=== PATIENT | female | born 1980 | race Caucasian/White ===

== ENCOUNTER 2018-04-25 16:35 | Inpatient (IN) ==
[2018-04-25] MEDS ORDERED: Oxytocin 30 Units/500ml Premix 30 UNITS/500 ML BAG IV.SIG ONE (17:13)
[2018-04-25] MEDS ORDERED: Sodium Chlor 0.9% Inj 500 ML IV.SIG PRN (17:13)
[2018-04-25] MEDS ORDERED: fentaNYL Citrate Inj 100 MCG/2 ML Ampul IV.PUSH PRN ×2 (17:13)
[2018-04-25] MEDS ORDERED: Sod Chloride 0.9% Inj 1,000 ML IV.CONT PRN (17:13)
[2018-04-25] MEDS ORDERED: Naloxone Inj 0.4 MG/ML Vial IV.PUSH PRN (17:13)
[2018-04-25] MEDS ORDERED: Citric Acid/Sodium Citrate Liq 30 ML UDC PO SCH (17:15)
--- NOTE | 2018-04-25 17:42 | P.HPOB ---
History of Present Illness Primary Care Physician: NOT REQU[facility] History of Present Illness: 38 y/o F, at 38wk4d comes in for LOF since waking up at 10:30AM this morning. She has had to change her underwear multiple times over the day. Fluid has been clear. Denies any CXNS. No VB. Slightly decreased FM over the day today , however she still feels the baby throughout the day. obhx this : No care from 13weeks-27weeks otherwise uncomplicated recent u/s findings of LGA baby, borderline polyhydramnios obhx: x 4 - last delivery in 2014 SAB x 1 TOP x 1 w/ D&C medhx: none surghx: none meds: PNV all: none - Inpatient Certification I certify that the inpatient services were ordered in accordance with Medicare regulations governing the order. This includes certification that hospital inpatient services are reasonable and necessary and in the case of services not specified as inpatient-only under 42 CFR 419.22(n), that they are appropriately provided as inpatient services in accordance to with the 2-midnight benchmark under 43 CFR 412.3(e) Estimated Total Length of Stay (Days): 2 Plans for Post Hospital Care: Home Review of Systems All other systems reviewed negative except as stated in HPI Medications and Allergies Active Medications: Active Medications Citric Acid/Sodium Citrate (Sodium Citrate/Citric Acid Liq) 30 ml PO MANAGER [facility] Stop: 04/29/18 17:14 Fentanyl Citrate (Fentanyl Inj) 50 mcg IV.PUSH Q1H PRN PRN Reason: Pain Scale 3 - 5 Fentanyl Citrate (Fentanyl Inj) 100 mcg IV.PUSH Q1H PRN PRN Reason: PAIN SCALE 6 TO 10 Lactated Ringer's (Lr 1000 Ml Inj) 1,000 mls @ 125 mls/hr IV.CONT .Q8H [facility] Lactated Ringer's (Lr 1000 Ml Inj) 1,000 mls @ 3,000 mls/hr IV.SIG UNSCH PRN PRN Reason: compromise or epidural Sodium Chloride (Ns Inj) 1,000 mls @ 100 mls/hr IV.CONT .Q10H PRN PRN Reason: SEE LABEL COMMENTS Oxytocin (Pitocin 30 Units/Ns 500 Ml Premix) 30 units in 500 mls @ 999 mls/hr IV.SIG BOLUS ONE Stop: 04/25/18 17:43 Sodium Chloride (Ns Inj) 500 mls @ 1,000 mls/hr IV.SIG UNSCH PRN PRN Reason: SEE LABEL COMMENTS Lidocaine HCl (Xylocaine 1% Inj) 0.1 ml I-DERMAL PRN PRN PRN Reason: For IV start Stop: 04/28/18 17:12 Lidocaine HCl (Xylocaine 1% Inj) 10 ml INFILTRATN PRN PRN PRN Reason: For episiotomy repair Stop: 04/27/18 17:12 Mineral Oil (Muri-Lube Oil) 10 ml TOPICAL PRN PRN PRN Reason: PRN perineal massage Naloxone HCl (Narcan Inj) 0.1 mg IV.PUSH Q2M PRN PRN Reason: for opiate reversal Ondansetron HCl (Zofran Inj) 4 mg IV.PUSH Q6H PRN PRN Reason: NAUSEA OR VOMITING Allergies Allergy/AdvReac Type Severity Reaction Status Date / Time No Known Allergies Allergy Verified 04/25/18 17:15 Exam Vital signs: Vital Signs 04/25/18 16:56 04/25/18 17:00 Temperature 98.2 F Pulse Rate 103 H Respiratory Rate 18 Blood Pressure 119/79 Intake & Output 04/24/18 04/25/18 04/25/18 18:59 06:59 18:59 Weight 92.079 kg Narrative: FH: 38 FHR: cat 1 tracing, no decels, reactive toco: no cxns Caprini VTE Risk Assessment Caprini VTE Risk Assessment: No/Low Risk (score <= 1) Caprini Risk Assessment Model: Point Value = 1 Point Value = 2 Point Value = 3 Point Value = 5 Age 41-60 Minor surgery BMI > 25 kg/m2 Swollen legs Varicose veins or History of unexplained or recurrent spontaneous Oral contraceptives or hormone replacement Sepsis (< 1 month) Serious lung disease, including pneumonia (< 1 month) Abnormal pulmonary function Acute myocardial infarction Congestive heart failure (< 1 month) History of inflammatory bowel disease Medical patient at bed rest Age 61-74 Arthroscopic surgery Major open surgery (> 45 min) Laparoscopic surgery (> 45 min) Malignancy Confined to bed (> 72 hours) Immobilizing plaster cast Central venous access Age >= 75 History of VTE Family history of VTE Factor V Leiden Prothrombin [id number] Lupus anticoagulant Anticardiolipin antibodies Elevated serum homocysteine Heparin-induced thrombocytopenia Other congenital or acquired thrombophilia Stroke (< 1 month) Elective arthroplasty Hip, pelvis, or leg fracture Acute spinal cord injury (< 1 month) Prophylaxis Regimen: Total Risk Factor Score Risk Level Prophylaxis Regimen 0-1 Low Early ambulation 2 Moderate Order ONE of the following: *Sequential Compression Device (SCD) *Heparin 5000 units SQ BID 3-4 Higher Order ONE of the following medications: *Heparin 5000 units SQ TID *Enoxaparin/Lovenox 40 mg SQ daily (WT < 150 kg, CrCl > 30 mL/min) *Enoxaparin/Lovenox 30 mg SQ daily (WT < 150 kg, CrCl > 10-29 mL/min) *Enoxaparin/Lovenox 30 mg SQ BID (WT < 150 kg, CrCl > 30 mL/min) AND/OR *Sequential Compression Device (SCD) 5 or more Highest Order ONE of the following medications: *Heparin 5000 units SQ TID (Preferred with Epidurals) *Enoxaparin/Lovenox 40 mg SQ daily (WT < 150 kg, CrCl > 30 mL/min) *Enoxaparin/Lovenox 30 mg SQ daily (WT < 150 kg, CrCl > 10-29 mL/min) *Enoxaparin/Lovenox 30 mg SQ BID (WT < 150 kg, CrCl > 30 mL/min) AND *Sequential Compression Device (SCD) Assessment and Plan - Diagnosis (1) 38 weeks gestation of Code(s): Z3A.38 - 38 weeks gestation of Status: Acute Plan: 38 y/o F, at 38wk4d comes in for LOF since waking up at 10:30AM this morning, + amniosure testing. - SROM at 10:30AM (at the latest) -GBS negative - admit to L&D for induction for premature ROM - plan for pit at 08-27-29 - OB hospitalist aware - PNL reviewed - Cat 1 tracing, cont to monitor
[2018-04-25] MEDS ORDERED: Oxytocin 30 Units/500ml Premix 30 UNITS/500 ML BAG IV.SIG PRN (18:00)
[2018-04-25 18:32] LABS: Baso % (Auto) 0.3 % (0.0-2.0); Eos % (Auto) 0.3 % (0.0-4.0); Hematocrit 35.1 % (35.0-46.0); Hemoglobin 12.8 gm/dL (11.6-15.3); Lymph # (Auto) 1.4 th/mm3 (1.0-4.8); Lymph % (Auto) 14.9 % (9.0-44.0); Mean Corpuscular Hemoglobin 33.3 pg (27.0-34.0); Mean Corpuscular Volume 91.2 fL (80.0-100.0); Mean Platelet Volume 9.2 fL (7.0-11.0); Mono # (Auto) 0.4 th/mm3 (0.0-0.9); Mono % (Auto) 4.8 % (0.0-8.0); Neut # (Auto) 7.3 th/mm3 (1.8-7.7); Neut % (Auto) 79.7 % (16.0-70.0); Platelet Count 215 th/mm3 (150-450); Red Blood Count 3.85 mil/mm3 (4.00-5.30); Red Cell Distribution Width 13.6 % (11.6-17.2); White Blood Count 9.2 th/mm3 (4.0-11.0)
[2018-04-25 18:35] LABS: Mean Corpuscular HGB Conc 36.5 % (32.0-36.0)
[2018-04-25 18:42] LABS: Bacteria,Urine Few /hpf; Bilirubin,Urine Negative (Negative); Calcium Oxalate Crystals,Urine Occasional /hpf; Clarity,Urine Hazy (Clear); Color,Urine Amber (Yellw/Straw); Glucose,Urine (UA) Negative (Negative); Hyaline Casts,Urine 1 /lpf (0-3); Leukocyte Esterase,Urine Small (Negative); Mucus,Urine Few /lpf (Occasional); Nitrite,Urine Negative (Negative); Specific Gravity,Urine 1.024 (1.002-1.035); Squamous Epithelial Cell,Urine 17 /hpf (0-5)
[2018-04-25 18:45] LABS: Amphetamine Urine With Conf Neg (Neg); Benzodiazepine Urine With Conf Neg (Neg)
[2018-04-25 19:06] LABS: Platelet Estimate Normal (Normal); Platelet Morphology Normal (Normal); RBC Morphology Normal (Normal)
[2018-04-25] MEDS ORDERED: Oxytocin 30 Units/500ml Premix 30 UNITS/500 ML BAG IV.CONT PRN (20:00)
--- NOTE | 2018-04-25 21:46 | P.OBLABOR ---
Subjective Interval history: Patient is a 38-year-old at 38 weeks and 4 days admitted to labor and delivery due to loss of fluid. Patient was seen at bedside patient is lying comfortably with no questions or concerns at this time. At approximately 2109 forebag was artificially ruptured. Objective Vital Signs: Vital Signs - 8 hr 04/25/18 16:56 04/25/18 17:00 04/25/18 19:25 Temperature 98.2 F 98.3 F Pulse Rate 103 H 92 H Respiratory Rate 18 18 Blood Pressure 119/79 121/71 Objective: Pelvic Exam: Cervix: Soft Dilatation: 3 Effacement: 80 Station: -2 Presentation: Vertex Membranes: Artificial rupture membranes at approximately 2109. Uterine Contractions: None FHT's: Category: 1 Baseline: 130s Reactive: Yes Variability: Moderate Decels: None Assessment and Plan - Diagnosis (1) 38 weeks gestation of Code(s): Z3A.38 - 38 weeks gestation of Status: Acute Plan: Patient is a 38-year-old at 38 weeks and 4 days admitted to labor and delivery due to loss of fluid. For bag was artificially ruptured at 2109. Patient currently on oxytocin. - AROM at 21:10 -Continue 2-2-30 oxytocin protocol - OB hospitalist aware - Cat 1 tracing, cont to monitor - Continue routine care
[2018-04-25] MEDS ORDERED: fentaNYL 2MCG-Bupiv 0.125% Epi 150 ML EPIDURAL ONE (22:53)
[2018-04-25] MEDS ORDERED: Lidocaine PF 1% Inj 10 ML Amp ONE (23:05)
[2018-04-25] MEDS ORDERED: Lidocaaine 1.5%/Epinephrine 1:200,000 PF Inj 5 ML Amp ONE (23:05)
[2018-04-25] MEDS ORDERED: fentaNYL 2MCG-Bupiv 0.125% Epi 150 ML EPIDURAL PRN (23:53)
[2018-04-25] MEDS ORDERED: fentaNYL Citrate Inj 100 MCG/2 ML Ampul EPIDURAL ONE (23:53)
[2018-04-26] MEDS ORDERED: Naloxone Inj 0.4 MG/ML Vial IV.PUSH PRN (06:09)
[2018-04-26] MEDS ORDERED: Bisacodyl 10 MG Supp RECTAL PRN (06:09)
[2018-04-26] MEDS ORDERED: Acetaminophen 325 MG Tablet PO PRN (06:09)
[2018-04-26] MEDS ORDERED: Benzocaine 20% Top Spray 60 ML Can TOPICAL PRN (06:09)
[2018-04-26] MEDS ORDERED: Witch Hazel 50%/Glyderin 12.5% 40 Pad Jar RECTAL PRN (06:09)
[2018-04-26] MEDS ORDERED: Zolpidem Tartrate 5 MG Tablet PO PRN (06:09)
[2018-04-26] MEDS ORDERED: Oxytocin 30 Units/500ml Premix 30 UNITS/500 ML BAG IV.CONT PRN (06:09)
--- NOTE | 2018-04-26 06:37 | P.OBDELI ---
Weeks Gestation: 38 Medical Induction of Labor: Yes Artificial Rupture of Membrane: Yes (forebag) Anesthesia: Epidural Episiotomy: none Vaginal Delivery: Normal Presentation: Occiput anterior Nuchal Cord: x1 Delayed Cord Clamping (45 sec): No Shoulder Dystocia: Suprapubic pressure given (#2), Bin maneuver done (#1) , Wood's screw maneuver done (#3- done after failed attempt to deliver posterior shoulder( left side ) .Successful rotation on anterior -right shoulder ) Placenta: Spontaneous delivery Laceration: None Estimated blood loss (mL): 50 : Male Additional Information: NICU team and respiratory present Apgars 6/6/8 Delivery taken over by Attending
[2018-04-26] MEDS: Senna/Docusate Sodium 8.6/50 MG Tablet PO SCH ×2 (09:57→21:42)
[2018-04-26] MEDS: Acetaminophen/Codeine 300/30 MG Tablet PO PRN ×3 (09:57→22:49)
[2018-04-26] MEDS ORDERED: Diphtheria/Tetanus/Pertussis Vaccine Inj 0.5 ML Syringe IM ONE (16:00)
[2018-04-26] MEDS ORDERED: Measles/Mumps/Rubella Vaccine Inj 0.5 ML Vial SQ ONE (16:00)
[2018-04-27] MEDS: Acetaminophen/Codeine 300/30 MG Tablet PO PRN ×4 (05:26→23:57)
--- NOTE | 2018-04-27 08:05 | P.PNOB ---
Subjective Post day: 1 Interval history: Patient is a 38-year-old delivered at 38 weeks and 4 days. Patient is day 1 after spontaneous vaginal delivery complicated by shoulder dystocia. Patient's pain is well-controlled. Patient reports eating and drinking without any nausea or vomiting. Patient reports minimal bleeding. Patient has passed gas. Patient is walking without lower extremity pain or shortness of breath. Patient reports desire for contraception but did not want to discuss this morning. Patient reports she is exhausted. Objective Vital Signs/I&O: Vital Signs 04/26/18 09:36 04/26/18 21:15 Temperature 98.0 F 98.2 F Pulse Rate 65 67 Respiratory Rate 20 18 Blood Pressure 131/70 120/66 Result Diagrams: 04/25/18 18:10 Objective Remarks: GENERAL: Well-nourished, well-developed patient. CARDIOVASCULAR: Regular rate and rhythm without murmurs, gallops, or rubs. RESPIRATORY: Breath sounds equal bilaterally. No accessory muscle use. ABDOMEN/GI: Abdomen soft, non-tender. Fundus: Firm, non-tender at umbilicus. GENITOURINARY: Light to moderate bleeding. EXTREMITIES: No cyanosis or edema, non-tender, without signs of DVT. Medications and IVs: Active Medications Acetaminophen (Tylenol) 650 mg PO Q4H PRN PRN Reason: PAIN SCALE 1 TO 2 Acetaminophen/Codeine Phosphate (Tylenol W/Cod #3) 1 tab PO Q6H PRN PRN Reason: PAIN 3-10 AND/OR FEVER >101F Last Admin: 04/27/18 05:26 Dose: 1 tab Al Hydroxide/Mg Hydroxide (Milk Of Magnesia Liq) 30 ml PO Q12H PRN PRN Reason: Mild Constipation Benzocaine (Americaine 20% [place]) 1 spray TOPICAL Q4H PRN PRN Reason: For Perineum Discomfort Last Admin: 04/26/18 09:57 Dose: 1 spray Bisacodyl (Dulcolax Supp) 10 mg RECTAL DAILY PRN PRN Reason: SEVERE CONSITIPATION Citric Acid/Sodium Citrate (Sodium Citrate/Citric Acid Liq) 30 ml PO GLASS CURVATURE GAUGER [facility] Stop: 04/29/18 17:14 Fentanyl Citrate (Fentanyl Inj) 50 mcg IV.PUSH Q1H PRN PRN Reason: Pain Scale 3 - 5 Fentanyl Citrate (Fentanyl Inj) 100 mcg IV.PUSH Q1H PRN PRN Reason: PAIN SCALE 6 TO 10 Last Admin: 04/25/18 22:25 Dose: 100 mcg Lactated Ringer's (Lr 1000 Ml Inj) 1,000 mls @ 125 mls/hr IV.CONT .Q8H [facility] Last Admin: 04/26/18 18:29 Dose: Not Given Lactated Ringer's (Lr 1000 Ml Inj) 1,000 mls @ 3,000 mls/hr IV.SIG UNSCH PRN PRN Reason: compromise or epidural Sodium Chloride (Ns Inj) 1,000 mls @ 100 mls/hr IV.CONT .Q10H PRN PRN Reason: SEE LABEL COMMENTS Sodium Chloride (Ns Inj) 500 mls @ 1,000 mls/hr IV.SIG UNSCH PRN PRN Reason: SEE LABEL COMMENTS Oxytocin (Pitocin 30 Units/Ns 500 Ml Premix) 30 units in 500 mls @ 2 mls/hr IV.SIG TITRATE PRN; Protocol PRN Reason: For induction of labor Oxytocin (Pitocin 30 Units/Ns 500 Ml Premix) 30 units in 500 mls @ 2 mls/hr IV.CONT TITRATE PRN; Protocol PRN Reason: For induction of labor Last Admin: 04/25/18 20:14 Dose: 2 milliunit/min, 2 mls/hr Fentanyl/Bupivacaine/Sodium Chlor (Fentanyl 2 Mcg-Bupiv 0.125% Epi) 150 mls @ 12 mls/hr EPIDURAL PRN PRN PRN Reason: for Labor Pain Last Admin: 04/25/18 23:56 Dose: 12 mls/hr Oxytocin (Pitocin 30 Units/Ns 500 Ml Premix) 30 units in 500 mls @ 100 mls/hr IV.CONT UNSCH PRN PRN Reason: Heavy bleeding Ibuprofen (Motrin) 800 mg PO Q8H PRN PRN Reason: For Cramping Last Admin: 04/27/18 00:45 Dose: 800 mg Lactulose (Lactulose Liq) 30 ml PO DAILY PRN PRN Reason: SEVERE CONSITIPATION Lidocaine HCl (Xylocaine 1% Inj) 0.1 ml I-DERMAL PRN PRN PRN Reason: For IV start Stop: 04/28/18 17:12 Lidocaine HCl (Xylocaine 1% Inj) 10 ml INFILTRATN PRN PRN PRN Reason: For episiotomy repair Stop: 04/27/18 17:12 Mineral Oil (Muri-Lube Oil) 10 ml TOPICAL PRN PRN PRN Reason: PRN perineal massage Naloxone HCl (Narcan Inj) 0.1 mg IV.PUSH Q2M PRN PRN Reason: for opiate reversal Naloxone HCl (Narcan Inj) 0.1 mg IV.PUSH Q2M PRN PRN Reason: for opiate reversal Ondansetron HCl (Zofran Inj) 4 mg IV.PUSH Q6H PRN PRN Reason: NAUSEA OR VOMITING Last Admin: 04/26/18 04:19 Dose: 4 mg Ondansetron HCl (Zofran Odt) 4 mg PO Q6H PRN PRN Reason: NAUSEA OR VOMITING Senna/Docusate Sodium (Jaimee-Colace) 1 tab PO BID [facility] Last Admin: 04/26/18 21:42 Dose: 1 tab Sennosides (Senokot) 17.2 mg PO Q12H PRN PRN Reason: Moderate Constipation Sodium Chloride (Ns Flush) 2 ml IV.FLUSH BID [facility] Last Admin: 04/26/18 21:42 Dose: 2 ml Sodium Chloride (Ns Flush) 2 ml IV.FLUSH PRN PRN PRN Reason: FLUSH AFTER USING IV ACCESS Witch Lia/Glycerin (Tucks Pads) 1 applicatio RECTAL QID PRN PRN Reason: HEMORRHOIDS Last Admin: 04/26/18 09:57 Dose: 1 applicatio Zolpidem Tartrate (Ambien) 5 mg PO HS PRN PRN Reason: SLEEP Assessment and Plan - Diagnosis (1) Normal course Code(s): Z39.2 - Encounter for routine follow-up Status: Acute - Plan Patient is a 38-year-old delivered at 38 weeks and 4 days. Patient is day 1 after spontaneous vaginal delivery complicated by shoulder dystocia. Patient was counseled to do 6 weeks of pelvic rest. Patient was counseled to follow up in 6 weeks. --AF VSS --Continue routine care --Motrin and Percocet when necessary for pain --Encourage OOB --Pelvic rest for 6 weeks will need follow-up appointment at that time. --Contraception: Patient still contemplating --Anticipate discharge this afternoon or tomorrow
[2018-04-27] MEDS: Senna/Docusate Sodium 8.6/50 MG Tablet PO SCH ×2 (09:41→22:28)
[2018-04-28] MEDS: Acetaminophen/Codeine 300/30 MG Tablet PO PRN (07:13)
--- NOTE | 2018-04-28 08:25 | P.PNOB ---
Subjective Post day: 2 Interval history: Patient is a 38-year-old delivered at 38 weeks and 4 days. Patient is day 2 after spontaneous vaginal delivery complicated by shoulder dystocia. Patient's pain is well-controlled. Patient reports eating and drinking without any nausea or vomiting. Patient reports minimal bleeding. Patient is walking without lower extremity pain or shortness of breath. Objective Vital Signs/I&O: Vital Signs 04/27/18 20:00 Temperature 98.1 F Pulse Rate 64 Respiratory Rate 17 Blood Pressure 139/75 Result Diagrams: 04/25/18 18:10 Objective Remarks: GENERAL: Well-nourished, well-developed patient. CARDIOVASCULAR: Regular rate and rhythm without murmurs, gallops, or rubs. RESPIRATORY: Breath sounds equal bilaterally. No accessory muscle use. ABDOMEN/GI: Abdomen soft, non-tender. Fundus: Firm, non-tender at umbilicus. GENITOURINARY: Light to moderate bleeding. EXTREMITIES: No cyanosis or edema, non-tender, without signs of DVT. Medications and IVs: Active Medications Acetaminophen (Tylenol) 650 mg PO Q4H PRN PRN Reason: PAIN SCALE 1 TO 2 Acetaminophen/Codeine Phosphate (Tylenol W/Cod #3) 1 tab PO Q6H PRN PRN Reason: PAIN 3-10 AND/OR FEVER >101F Last Admin: 04/28/18 07:13 Dose: 1 tab Al Hydroxide/Mg Hydroxide (Milk Of Magnesia Liq) 30 ml PO Q12H PRN PRN Reason: Mild Constipation Benzocaine (Americaine 20% Top [place]) 1 spray TOPICAL Q4H PRN PRN Reason: For Perineum Discomfort Last Admin: 04/26/18 09:57 Dose: 1 spray Bisacodyl (Dulcolax Supp) 10 mg RECTAL DAILY PRN PRN Reason: SEVERE CONSITIPATION Citric Acid/Sodium Citrate (Sodium Citrate/Citric Acid Liq) 30 ml PO MANUFACTURING ENGINEERING TECHNOLOGIST [facility] Stop: 04/29/18 17:14 Fentanyl Citrate (Fentanyl Inj) 50 mcg IV.PUSH Q1H PRN PRN Reason: Pain Scale 3 - 5 Fentanyl Citrate (Fentanyl Inj) 100 mcg IV.PUSH Q1H PRN PRN Reason: PAIN SCALE 6 TO 10 Last Admin: 04/25/18 22:25 Dose: 100 mcg Lactated Ringer's (Lr 1000 Ml Inj) 1,000 mls @ 125 mls/hr IV.CONT .Q8H [facility] Last Admin: 04/26/18 18:29 Dose: Not Given Lactated Ringer's (Lr 1000 Ml Inj) 1,000 mls @ 3,000 mls/hr IV.SIG UNSCH PRN PRN Reason: compromise or epidural Sodium Chloride (Ns Inj) 1,000 mls @ 100 mls/hr IV.CONT .Q10H PRN PRN Reason: SEE LABEL COMMENTS Sodium Chloride (Ns Inj) 500 mls @ 1,000 mls/hr IV.SIG UNSCH PRN PRN Reason: SEE LABEL COMMENTS Oxytocin (Pitocin 30 Units/Ns 500 Ml Premix) 30 units in 500 mls @ 2 mls/hr IV.SIG TITRATE PRN; Protocol PRN Reason: For induction of labor Oxytocin (Pitocin 30 Units/Ns 500 Ml Premix) 30 units in 500 mls @ 2 mls/hr IV.CONT TITRATE PRN; Protocol PRN Reason: For induction of labor Last Admin: 04/25/18 20:14 Dose: 2 milliunit/min, 2 mls/hr Fentanyl/Bupivacaine/Sodium Chlor (Fentanyl 2 Mcg-Bupiv 0.125% Epi) 150 mls @ 12 mls/hr EPIDURAL PRN PRN PRN Reason: for Labor Pain Last Admin: 04/25/18 23:56 Dose: 12 mls/hr Oxytocin (Pitocin 30 Units/Ns 500 Ml Premix) 30 units in 500 mls @ 100 mls/hr IV.CONT UNSCH PRN PRN Reason: Heavy bleeding Ibuprofen (Motrin) 800 mg PO Q8H PRN PRN Reason: For Cramping Last Admin: 04/28/18 07:13 Dose: 800 mg Lactulose (Lactulose Liq) 30 ml PO DAILY PRN PRN Reason: SEVERE CONSITIPATION Lidocaine HCl (Xylocaine 1% Inj) 0.1 ml I-DERMAL PRN PRN PRN Reason: For IV start Stop: 04/28/18 17:12 Mineral Oil (Muri-Lube Oil) 10 ml TOPICAL PRN PRN PRN Reason: PRN perineal massage Naloxone HCl (Narcan Inj) 0.1 mg IV.PUSH Q2M PRN PRN Reason: for opiate reversal Naloxone HCl (Narcan Inj) 0.1 mg IV.PUSH Q2M PRN PRN Reason: for opiate reversal Ondansetron HCl (Zofran Inj) 4 mg IV.PUSH Q6H PRN PRN Reason: NAUSEA OR VOMITING Last Admin: 04/26/18 04:19 Dose: 4 mg Ondansetron HCl (Zofran Odt) 4 mg PO Q6H PRN PRN Reason: NAUSEA OR VOMITING Senna/Docusate Sodium (Jaimee-Colace) 1 tab PO BID [facility] Last Admin: 04/27/18 22:28 Dose: 1 tab Sennosides (Senokot) 17.2 mg PO Q12H PRN PRN Reason: Moderate Constipation Sodium Chloride (Ns Flush) 2 ml IV.FLUSH BID [facility] Last Admin: 04/27/18 22:30 Dose: Not Given Sodium Chloride (Ns Flush) 2 ml IV.FLUSH PRN PRN PRN Reason: FLUSH AFTER USING IV ACCESS Witch Lia/Glycerin (Tucks Pads) 1 applicatio RECTAL QID PRN PRN Reason: HEMORRHOIDS Last Admin: 04/26/18 09:57 Dose: 1 applicatio Zolpidem Tartrate (Ambien) 5 mg PO HS PRN PRN Reason: SLEEP Assessment and Plan - Diagnosis (1) Normal course Code(s): Z39.2 - Encounter for routine follow-up Status: Acute - Plan Patient is a 38-year-old delivered at 38 weeks and 4 days. Patient is day 2 after spontaneous vaginal delivery complicated by shoulder dystocia. Patient was counseled to do 6 weeks of pelvic rest. Patient was counseled to follow up in 6 weeks. --AF VSS --Continue routine care --Ibuprofen when necessary for pain --Encourage OOB --Pelvic rest for 6 weeks will need follow-up appointment at that time. --Contraception: Patient still contemplating --Anticipate discharge today
[2018-04-28] MEDS: Senna/Docusate Sodium 8.6/50 MG Tablet PO SCH (10:29)
[2018-05-03 03:01] VITALS: BP 125/76; PULSE 52
[2018-05-03 03:04] VITALS: RESP 16
[2018-05-03 03:05] VITALS: TEMP 97.8
== END 2018-04-28 17:58 | disposition home or self-care (01) ==
LOC: HOBED 16:35 → H2E 17:23 → H1EA 04-26 09:04
PROVIDERS: ADMIT Obstetrics & Gynecology; ATTEND Obstetrics & Gynecology

== ENCOUNTER 2018-05-02 18:48 | Inpatient (IN) ==
--- NOTE | 2018-05-02 19:44 | ED ---
HPI General Chief complaint: Chest Pain Stated complaint: SOB after Delivery Time Seen by Provider: 05/02/18 19:16 Source: patient Mode of arrival: ambulatory Limitations: no limitations History of Present Illness HPI narrative: The patient is a 38 year old female 6 days status post vaginal delivery who presents to the [facility] emergency department with a history of shortness of breath that began last night. The patient reports that she had several episodes of awakening from sound sleep gasping for air. She reports that throughout the day today she is also felt like she cannot get a deep breath. She denies having any cough, nasal congestion, or nasal discharge, however she has had a headache. She reports that it started on the left side of her head and now feels more like a tension headache. She reports that she thought it may be related to sinus congestion, therefore on Wednesday she started a decongestant. She does not know the name of it. The patient also reports taking ibuprofen as needed since the delivery. She reports that her lochia is decreasing. She denies having any increasing lower extremity edema, calf pain, or erythema. She reports that she has felt exhausted since the delivery and has been mainly resting in bed over the last few days. She reports that she is bottlefeeding. She denies having any known fevers. On review of systems otherwise, the patient denies having any neck pain or stiffness, abdominal pain, vomiting, diarrhea, urinary symptoms, or neurologic symptoms. The patient reports that when she tries to take a deep breath she has intermittent sharp pain along bilateral sides of the chest. Related Data Previous Rx's Medication Instructions Recorded ibuprofen 800 mg PO Q8H PRN #30 tab 04/27/18 Allergies Allergy/AdvReac Type Severity Reaction Status Date / Time No Known Allergies Allergy Verified 04/25/18 17:15 Review of Systems ROS: all other systems reviewed are negative [facility] Medical History Medical History Patient denies medical problems (Acute) Surgical History Surgical History Hx of tonsillectomy (Acute) Family History Family History Grandparent Stroke Social History Social History Substance History: No History of Abuse Second Hand Smoke Exposure: No Smoking Status: Former smoker Tobacco Type: Cigarettes Cigarettes Per Day: 7 Years Smoked: 2 Pack-Years: 0.70 How Often Do You Have a Drink Containing Alcohol: Never Recent Travel in [facility] within the Last 8 Weeks: No Recent Out of Country Travel within the Last 8 Weeks: No Immunization History Tetanus Immunization: >5 Years Exam Const General: cooperative, no acute distress and well developed Nutritional Appearance: well nourished Orientation: alert, awake and oriented x3 [facility] Head: normocephalic and atraumatic Nose: no nasal discharge and no epistaxis Face and sinus: no sinus tenderness Mouth: moist mucous membranes Throat: posterior oropharynx normal and uvula midline Eyes Sclera: normal sclerae Pupils: PERRL EOM: EOM intact bilaterally Neck Neck: trachea midline and no JVD Resp Effort & Inspection: no use of accessory muscles Auscultation: clear to auscultation bilaterally Cardio Rate: bradycardic (Sinus bradycardia in the 40s, no pulse deficits to the extremities on simultaneous auscultation and palpation of her radial artery) Rhythm: regular rhythm Heart Sounds: no gallops, no murmurs and no rubs GI Inspection: non-distended and other (Fundus is firm and below the umbilicus.) Palpation: soft, no hepatosplenomegaly and nontender Auscultation: normal bowel sounds Back/Spine/Pelvis Back: no CVA tenderness Skin General: dry skin (warm) Neuro General: alert, awake, oriented x3 and other (Grossly nonfocal.) Speech: speech normal Motor: no movement abnormalities noted Extrem General: normal to inspection (2+ pulses in all 4 extremities. Negative Homans sign. No palpable cords.), calf tenderness, no clubbing, no cyanosis and edema (Trace pedal edema bilaterally.) Laterality: bilaterally Psych Mood: congruent mood Affect: normal affect Judgment: judgment good Course Reevaluation(s) Reevaluation #1: The patient on reevaluation is resting reports feeling improved well resting. Blood pressure is slowly improving. Initial Documented Vital Signs Temperature 98.5 F 05/02/18 19:08 Pulse Rate 47 L 05/02/18 19:08 Respiratory Rate 18 05/02/18 19:08 Blood Pressure 164/94 H 05/02/18 19:08 Pulse Oximetry 98 05/02/18 19:08 Last Documented Vital Signs Temperature 98.4 F 05/03/18 17:00 Pulse Rate 76 05/03/18 17:55 Respiratory Rate 18 05/03/18 18:00 Blood Pressure 124/74 05/03/18 18:00 Pulse Oximetry 96 05/03/18 00:07 Critical Care Time Critical Care Time: Yes Total Critical Care Time: 41 Attestation: Aggregate critical care time was 41 minutes. Time to perform other separately billable procedures was not included in the critical care time. My time did not include minutes spent treating any other patients simultaneously or on activities that did not directly contribute to the patient's treatment. The services I provided to this patient were to treat and/or prevent clinically significant deterioration that could result in: Respiratory failure, versus seizure activity, cardiovascular collapse I provided critical care services requiring my management, as noted below: Chart data review, documentation time, medication orders and management, vital sign assessments/reviewing monitor data, ordering and reviewing lab tests, ordering and interpreting/reviewing x-rays and diagnostic studies, care of the patient and discussion of the patient with the admitting physicians. Medical Decision Making MDM Narrative Medical decision making narrative: During the course of the patient's emergency department visit, the patient's history, examination, and differential diagnosis were reviewed with the patient. The patient was placed on a specialty person with oximetry and frequent blood pressure monitoring. The patient had IV access obtained and blood work sent for analysis. A diagnostic evaluation was started regarding the patient's shortness of breath, hypertension, bradycardia. A call was placed out to the OB ED hospitalist at 7:29 PM regarding this patient's case. I spoke to Dr. Ceja. She recommended that the workup be started in the emergency department and that I call her with additional information after the results are obtained. The patient initially had an EKG that shows a sinus cardia heart rate of 46, QRS duration is 86 ms, QTC 376 ms. The patient's initial blood pressure was 173/84, however the patient's blood pressure quickly went down to the 150 systolic. This will be monitored closely. The patient's blood pressure again went up. The patient was given hydralazine 5 mg IV. The patient's diagnostic studies are remarkable for a white count of 5.4, hemoglobin 12.3, platelets are normal at 232 with a normal differential, PT PTT within normal limits, d-dimer is elevated at 3.71, CTA to rule out PE was ordered. Chemistry is remarkable for chloride of 109, ALT is elevated at 59, however AST is normal at 33, alk phos 161, initial set of cardiac enzymes are within normal limits, BNP is 268, albumin 2.7, magnesium is 1.9. Urinalysis shows large occult blood trace leukocyte esterase 33 RBCs 9 WBCs few mucus, culture indicated, however I suspect this is contaminant from vaginal bleeding from recent delivery. No protein is noted in the urine. A CTA to rule out PE shows no evidence of pulmonary embolism, 5 mm right lung nodule and multiple enlarged middle mediastinal and bilateral hilar nodes are nonspecific, mid mid malignancy needs to be ruled out according to the reading radiologist. A call was again placed out to the OB ED hospitalist. She did agree to admit the patient for further evaluation and treatment to labor and delivery. The patient's blood pressure continued to be elevated and I discussed with her an additional administration of hydralazine. She was agreeable to another 5 mg IV being administered. The patient's blood pressure improved. The patient was transferred to L&D. The patient's results were discussed with the patient, including the plan of care. I explained that further testing and/ or monitoring is indicated based on the patient's history, examination, and/ or laboratory findings. Therefore, I recommended admission for additional evaluation. The patient expressed understanding and was agreeable with this plan. The patient was admitted to the hospital in guarded condition and sent to a bed under the care of the OB ED hospitalist. The patient's results were discussed with the patient, including the plan of care. I explained that further testing and/ or monitoring is indicated based on the patient's history, examination, and/ or laboratory findings. Therefore, I recommended admission for additional evaluation. The patient expressed understanding and was agreeable with this plan. The patient was admitted to the hospital in [-] condition and sent to a bed under the care of [-]. Medical Screen Exam Complete: Yes Emergency Medical Condition: Yes Differential Diagnosis Differential Diagnosis: Pneumonia, versus pulmonary embolism, versus cardiomyopathy, versus symptomatic bradycardia, versus acute coronary syndrome Medical Records Medical records reviewed: Yes I reviewed the patient's medical records. Lab Data Result diagrams: 05/02/18 19:40 05/02/18 19:40 Lab Results 05/02/18 05/02/18 05/02/18 Range/Units 19:40 19:40 19:40 WBC 5.4 (4.0-11.0) th/mm3 RBC 3.80 L (4.00-5.30) mil/mm3 Hgb 12.3 (11.6-15.3) gm/dL Hct 35.0 (35.0-46.0) % MCV 92.2 (80.0-100.0) fL MCH 32.5 (27.0-34.0) pg MCHC 35.3 (32.0-36.0) % RDW 12.8 (11.6-17.2) % Plt Count 232 (150-450) th/mm3 MPV 9.3 (7.0-11.0) fL Neut % (Auto) 65.5 (16.0-70.0) % Lymph % (Auto) 26.3 (9.0-44.0) % [place] % (Auto) 6.5 (0.0-8.0) % Eos % (Auto) 1.2 (0.0-4.0) % Baso % (Auto) 0.5 (0.0-2.0) % Neut # (Auto) 3.5 (1.8-7.7) th/mm3 Lymph # (Auto) 1.4 (1.0-4.8) th/mm3 [place] # (Auto) 0.4 (0.0-0.9) th/mm3 Eos # (Auto) 0.1 (0.0-0.4) th/mm3 Baso # (Auto) 0.0 (0.0-0.2) th/mm3 WBC Differential . Differential Comment Auto diff final PT 9.9 (9.8-11.6) sec INR 1.0 Ratio APTT 27.3 (24.3-30.1) sec D-Dimer Quant (PE/DVT) 3.71 H (0.00-0.50) mg/L FEU Sodium 141 (136-145) meq/L Potassium 4.1 (3.5-5.1) meq/L Chloride 109 H (98-107) meq/L Carbon Dioxide 22.8 (21.0-32.0) meq/L Anion Gap 9 (5-15) meq/L BUN 17 (7-18) mg/dL Creatinine 0.62 (0.50-1.00) mg/dL Estimated GFR Greater than 89 (>89) mL/min Random Glucose 83 (74-106) mg/dL Calcium 8.5 (8.5-10.1) mg/dL Magnesium (1.5-2.5) mg/dL Total Bilirubin 0.5 (0.2-1.0) mg/dL AST 33 (15-37) U/L ALT 59 H (10-53) U/L Alkaline Phosphatase 161 H (45-117) U/L Total Creatine Kinase 86 (26-192) U/L Troponin I Less than 0.02 L (0.02-0.05) ng/mL B-Natriuretic Peptide (0-100) pg/mL Total Protein 6.8 (6.4-8.2) g/dL Albumin 2.7 L (3.4-5.0) g/dL Urine Color (Yellw/Straw) Urine Clarity (Clear) Urine pH (5.0-8.5) Ur Specific [place] (1.002-1.035) Urine Protein (Neg-Trace) mg/dL Urine Glucose (UA) (Negative) mg/dL Urine Ketones (Negative) mg/dL Urine Occult Blood (Negative) Urine Nitrate (Negative) Urine Bilirubin (Negative) Urine Urobilinogen (Less than 2) mg/dL Ur Leukocyte Esterase (Negative) Urine RBC (0-3) /hpf Urine WBC (0-5) /hpf Ur Squamous Epith Cells (0-5) /hpf Urine Mucus (Occasional) /lpf Micro UA Comment Ur Microscopic Review Urine Culture Comments 05/02/18 05/02/18 05/02/18 Range/Units 19:40 19:40 21:30 WBC (4.0-11.0) th/mm3 RBC (4.00-5.30) mil/mm3 Hgb (11.6-15.3) gm/dL Hct (35.0-46.0) % MCV (80.0-100.0) fL MCH (27.0-34.0) pg MCHC (32.0-36.0) % RDW (11.6-17.2) % Plt Count (150-450) th/mm3 MPV (7.0-11.0) fL Neut % (Auto) (16.0-70.0) % Lymph % (Auto) (9.0-44.0) % [place] % (Auto) (0.0-8.0) % Eos % (Auto) (0.0-4.0) % Baso % (Auto) (0.0-2.0) % Neut # (Auto) (1.8-7.7) th/mm3 Lymph # (Auto) (1.0-4.8) th/mm3 [place] # (Auto) (0.0-0.9) th/mm3 Eos # (Auto) (0.0-0.4) th/mm3 Baso # (Auto) (0.0-0.2) th/mm3 WBC Differential Differential Comment PT (9.8-11.6) sec INR Ratio APTT (24.3-30.1) sec D-Dimer Quant (PE/DVT) (0.00-0.50) mg/L FEU Sodium (136-145) meq/L Potassium (3.5-5.1) meq/L Chloride (98-107) meq/L Carbon Dioxide (21.0-32.0) meq/L Anion Gap (5-15) meq/L BUN (7-18) mg/dL Creatinine (0.50-1.00) mg/dL Estimated GFR (>89) mL/min Random Glucose (74-106) mg/dL Calcium (8.5-10.1) mg/dL Magnesium 1.9 (1.5-2.5) mg/dL Total Bilirubin (0.2-1.0) mg/dL AST (15-37) U/L ALT (10-53) U/L Alkaline Phosphatase (45-117) U/L Total Creatine Kinase (26-192) U/L Troponin I (0.02-0.05) ng/mL B-Natriuretic Peptide 268 H (0-100) pg/mL Total Protein (6.4-8.2) g/dL Albumin (3.4-5.0) g/dL Urine Color Yellow (Yellw/Straw) Urine Clarity Clear (Clear) Urine pH 5.0 (5.0-8.5) Ur Specific [place] 1.023 (1.002-1.035) Urine Protein Negative (Neg-Trace) mg/dL Urine Glucose (UA) Negative (Negative) mg/dL Urine Ketones Negative (Negative) mg/dL Urine Occult Blood Large H (Negative) Urine Nitrate Negative (Negative) Urine Bilirubin Negative (Negative) Urine Urobilinogen Less than 2 (Less than 2) mg/dL Ur Leukocyte Esterase Trace H (Negative) Urine RBC 33 H (0-3) /hpf Urine WBC 9 H (0-5) /hpf Ur Squamous Epith Cells 1 (0-5) /hpf Urine Mucus Few H (Occasional) /lpf Micro UA Comment Culture indicated Ur Microscopic Review Not Reportable Urine Culture Comments Culture indicated Imaging Data Radiologist's impression: Chest X-Ray 05/02/18 19:33 CONCLUSION: The lungs are clear. Chest CTA 05/02/18 21:02 CONCLUSION: 1. The study is negative for pulmonary embolism. 2. 5 mm right lung nodule and multiple enlarged middle mediastinal and bilateral hilar nodes are nonspecific; malignancy needs to be ruled out. ECG Data Attestation: I personally reviewed and interpreted this ECG as follows: Interpretation: The patient had an EKG done on arrival. The patient's EKG reveals a sinus bradycardia heart rate of 46, QRS duration is 86 ms, QTC [address] segment elevation, T waves are inverted in V1. Discharge Plan Discharge Disposition Patient Disposition: 30 Still Patient Discharge Details Diagnosis: Shortness of breath, Hypertension, Lymphadenopathy, mediastinal Physicians Team ED Provider: Jacqueline Jose Primary Care Provider: UNKNOWN, Attending Provider: Keturah Ceja Other Providers: Nyla Hawkins ; [facility],Insurance ; Florencio Matias Discharge Interventions Interventions: ED Discharge Assessment Last Done: 05/03/18 02:56 Vital Signs Last Done: 05/02/18 19:21 Status ED Status: Left Department Discharge Information Discharge Date/Time: 05/03/18 02:57
--- NOTE | 2018-05-02 19:51 | XR ---
EXAM DATE: 05/02/2018 7:33 PM EDT AGE/SEX: 38 years / Female INDICATIONS: Chest discomfort with shortness of breath post recent delivery. CLINICAL DATA: This is the patient's initial encounter. Patient reports that signs and symptoms have been present for 1 week and indicates a pain score of 2/10. MEDICAL/SURGICAL HISTORY: None. None. COMPARISON: No prior exams available for comparison. FINDINGS: A single AP view of the chest demonstrates the lungs to be symmetrically aerated without evidence of mass, infiltrate or effusion. The cardiomediastinal contours are unremarkable. Osseous structures a re intact. CONCLUSION: The lungs are clear. Electronically signed by: Marlon Ferguson MD 05/02/2018 7:49 PM EDT
[2018-05-02 20:02] LABS: Baso % (Auto) 0.5 % (0.0-2.0); Eos # (Auto) 0.1 th/mm3 (0.0-0.4); Eos % (Auto) 1.2 % (0.0-4.0); Hemoglobin 12.3 gm/dL (11.6-15.3); Lymph # (Auto) 1.4 th/mm3 (1.0-4.8); Lymph % (Auto) 26.3 % (9.0-44.0); Mean Corpuscular HGB Conc 35.3 % (32.0-36.0); Mean Corpuscular Hemoglobin 32.5 pg (27.0-34.0); Mean Corpuscular Volume 92.2 fL (80.0-100.0); Mean Platelet Volume 9.3 fL (7.0-11.0); Mono # (Auto) 0.4 th/mm3 (0.0-0.9); Mono % (Auto) 6.5 % (0.0-8.0); Neut # (Auto) 3.5 th/mm3 (1.8-7.7); Neut % (Auto) 65.5 % (16.0-70.0); Platelet Count 232 th/mm3 (150-450); Red Cell Distribution Width 12.8 % (11.6-17.2); White Blood Count 5.4 th/mm3 (4.0-11.0)
[2018-05-02 20:19] LABS: Albumin 2.7 g/dL (3.4-5.0); Anion Gap 9 meq/L (5-15); Aspartate Aminotransferase 33 U/L (15-37); Blood Urea Nitrogen 17 mg/dL (7-18); Calcium 8.5 mg/dL (8.5-10.1); Carbon Dioxide 22.8 meq/L (21.0-32.0); Chloride 109 meq/L (98-107); Glomerular Filtration Rate Greater Than 89 mL/min (>89); Glucose,Random 83 mg/dL (74-106); Potassium 4.1 meq/L (3.5-5.1); Sodium 141 meq/L (136-145)
[2018-05-02 20:24] LABS: Alanine Aminotransferase 59 U/L (10-53); Alkaline Phosphatase 161 U/L (45-117); Creatine Kinase 86 U/L (26-192); Total Protein 6.8 g/dL (6.4-8.2)
[2018-05-02 20:52] LABS: Activated Partial Thrombo Time 27.3 sec (24.3-30.1); D-Dimer 3.71 mg/L FEU (0.00-0.50); Prothrombin Time 9.9 sec (9.8-11.6)
[2018-05-02 21:55] LABS: Bilirubin,Urine Negative (Negative); Clarity,Urine Clear (Clear); Color,Urine Yellow (Yellw/Straw); Glucose,Urine (UA) Negative (Negative); Leukocyte Esterase,Urine Trace (Negative); Mucus,Urine Few /lpf (Occasional); Nitrite,Urine Negative (Negative); Specific Gravity,Urine 1.023 (1.002-1.035); Squamous Epithelial Cell,Urine 1 /hpf (0-5)
[2018-05-02] MEDS ORDERED: hydrALAZINE HCl Inj 20 MG/ML Vial IV.PUSH ONE ×2 (22:06→23:24)
--- NOTE | 2018-05-02 23:10 | CT ---
EXAM DATE: 05/02/2018 9:33 PM EDT AGE/SEX: 38 years / Female INDICATIONS: Shortness of breath. Patient is six days . CLINICAL DATA: This is the patient's initial encounter. Patient reports that signs and symptoms have been present for 3 days and indicates a pain score of 0/10. MEDICAL/SURGICAL HISTORY: None. None. RADIATION DOSE: 18.05 CTDI (mGy) COMPARISON: No prior exams available for comparison. TECHNIQUE: Volumetric scanning was performed using a multi-row detector CT scanner during bolus infu amy of 85 ml Omnipaque 350 (iohexol) nonionic water-soluble contrast as a single exam dose. The j carlos a was post processed with a variety of visualization algorithms including full volume maximum intensi ty projection and sliding thin slab reformation. Using automated exposure control and adjustment of t he mA and/or kV according to patient size, radiation dose was kept as low as reasonably achievable to obtain optimal diagnostic quality images. DICOM format image data is available electronically for r eview and comparison. FINDINGS: Pulmonary Arteries: No filling defects are seen in the pulmonary arteries out to the subsegmental ve ssels. The left and right pulmonary arteries are normal in diameter. Lun mm noncalcified nodule in the anterior right midlung, best seen on the axial image #47. Effusion: None. Mediastinum: Abnormal. Enlarged middle mediastinal nodes including 1.5 cm azygos node, 2.2 cm subcar inal node and bilateral hilar adenopathy measuring up to 2.5 cm. Other: The axilla is unremarkable. CONCLUSION: 1. The study is negative for pulmonary embolism. 2. 5 mm right lung nodule and multiple enlarged middle mediastinal and bilateral hilar nodes are non specific; malignancy needs to be ruled out. Electronically signed by: Marlon Ferguson MD 05/02/2018 11:08 PM EDT
[2018-05-03 00:07] VITALS: O2SAT 96
[2018-05-03] MEDS ORDERED: Acetaminophen 325 MG Tablet PO PRN (03:32)
[2018-05-03] MEDS ORDERED: Mag Sulf/Water 4 gm/100 ml 100 ML IV.SIG ONE (03:32)
--- NOTE | 2018-05-03 03:46 | P.HPOB ---
History of Present Illness Primary Care Physician: UNKNOWN Chief Complaint: Shortness of breath History of Present Illness: 38-year-old status post normal spontaneous vaginal delivery complicated by shoulder dystocia baby is well. Patient presented to the emergency department complaining of acute shortness of breath. States with attempt to sit up notes very short of breath. Extensive workup in the ED. Received hydralazine x2 with improvement of BPs. AST is elevated. Now complains of severe headache. Spiral CT negative for pulmonary embolus however her hilar adenopathy is noted with a lung nodule. Cardiac enzymes are unremarkable. Chest x-ray negative EKG unremarkable however patient noted to have bradycardia for which she is asymptomatic - Inpatient Certification I certify that the inpatient services were ordered in accordance with Medicare regulations governing the order. This includes certification that hospital inpatient services are reasonable and necessary and in the case of services not specified as inpatient-only under 42 CFR 419.22(n), that they are appropriately provided as inpatient services in accordance to with the 2-midnight benchmark under 43 CFR 412.3(e) Estimated Total Length of Stay (Days): 3 Plans for Post Hospital Care: Home Review of Systems Constitutional: Reports headache(s), Denies anorexia, Denies body ache(s), Denies fatigue, Denies night sweats Eyes: Denies blind spots, Denies blurry vision, Denies change in vision, Denies floaters Ears, Nose, Mouth, and Throat: Denies abnormal hearing Cardiovascular: Denies chest pain Respiratory: Reports shortness of breath, Denies cough, Denies pain on inspiration Gastrointestinal: Denies abdominal pain Musculoskeletal: Denies abnormal walking, Denies joint pain, Denies joint swelling Skin/Breast: Denies bleeding lesions Neurologic: Reports headache(s), Denies abnormal hearing, Denies abnormal speech , Denies fainting, Denies loss of vision, Denies memory loss, Denies tingling, Denies tingling/numbness/burning sensations, Denies weakness Psychiatric: Reports abnormal sleep pattern, Denies seeing things others do not see, Denies sensing things others do not sense, Denies thoughts of hurting/ killing yourself Endocrine: Denies cold intolerance Allergic/Immunologic: Reports seasonal runny nose, Denies GI upset with certain foods PMFSH - History History Provided By: Patient - Medical History Medical History: Medical History (Last Reviewed 05/02/18 @ 19:39 by Jacqueline Jose MD) Patient denies medical problems - Surgical History Surgical History: Surgical History (Last Reviewed 05/02/18 @ 19:39 by Jacqueline Jose MD) Hx of tonsillectomy - Tobacco History Smoking Status: Former smoker Tobacco Type: Cigarettes - Alcohol History How Often Do You Have a Drink Containing Alcohol: Never - Substance Use History Substance History: No History of Abuse - Travel History Recent Travel in the [place] Within the Last 8 Weeks: No Recent Travel Out of the Country Within the Last 8 Weeks: No - Immunization History Tetanus Immunization: >5 Years Medications and Allergies Active Medications: Active Medications Sodium Chloride (Ns Flush) 2 ml IV.FLUSH UNSCH PRN PRN Reason: FLUSH AFTER USING IV ACCESS Allergies Allergy/AdvReac Type Severity Reaction Status Date / Time No Known Allergies Allergy Verified 04/25/18 17:15 Exam Vital signs: Vital Signs 05/02/18 19:08 05/02/18 19:21 05/02/18 22:12 Temperature 98.5 F Pulse Rate 47 L 46 L 44 L Respiratory Rate 18 20 16 Blood Pressure 164/94 H 173/84 H 153/83 H Pulse Oximetry 98 97 97 05/02/18 22:28 05/02/18 22:40 05/02/18 23:18 Temperature Pulse Rate 54 L 42 L Respiratory Rate 19 18 Blood Pressure 160/74 H 166/78 H Pulse Oximetry 97 96 97 05/02/18 23:19 05/02/18 23:43 05/03/18 00:07 Temperature Pulse Rate 42 L 45 L 47 L Respiratory Rate 16 Blood Pressure 143/70 H 139/89 Pulse Oximetry 97 96 Intake & Output 05/02/18 05/02/18 05/03/18 06:59 18:59 06:59 Weight 81.647 kg Results - Labs CBC & Chem 7: 05/02/18 19:40 05/02/18 19:40 Labs: Laboratory Results - last 24 hr 05/02/18 05/02/18 05/02/18 19:40 19:40 19:40 WBC 5.4 RBC 3.80 L Hgb 12.3 Hct 35.0 MCV 92.2 MCH 32.5 MCHC 35.3 RDW 12.8 Plt Count 232 MPV 9.3 Neut % (Auto) 65.5 Lymph % (Auto) 26.3 Nelson % (Auto) 6.5 Eos % (Auto) 1.2 Baso % (Auto) 0.5 Neut # (Auto) 3.5 Lymph # (Auto) 1.4 Nelson # (Auto) 0.4 Eos # (Auto) 0.1 Baso # (Auto) 0.0 WBC Differential . Differential Comment Auto diff final PT 9.9 INR 1.0 APTT 27.3 D-Dimer Quant (PE/DVT) 3.71 H Sodium 141 Potassium 4.1 Chloride 109 H Carbon Dioxide 22.8 Anion Gap 9 BUN 17 Creatinine 0.62 Estimated GFR Greater than 89 Random Glucose 83 Calcium 8.5 Magnesium Total Bilirubin 0.5 AST 33 ALT 59 H Alkaline Phosphatase 161 H Total Creatine Kinase 86 Troponin I Less than 0.02 L B-Natriuretic Peptide Total Protein 6.8 Albumin 2.7 L Urine Color Urine Clarity Urine pH Ur Specific [place] Urine Protein Urine Glucose (UA) Urine Ketones Urine Occult Blood Urine Nitrate Urine Bilirubin Urine Urobilinogen Ur Leukocyte Esterase Urine RBC Urine WBC Ur Squamous Epith Cells Urine Mucus Micro UA Comment Ur Microscopic Review Urine Culture Comments 05/02/18 05/02/18 05/02/18 19:40 19:40 21:30 WBC RBC Hgb Hct MCV MCH MCHC RDW Plt Count MPV Neut % (Auto) Lymph % (Auto) Nelson % (Auto) Eos % (Auto) Baso % (Auto) Neut # (Auto) Lymph # (Auto) Nelson # (Auto) Eos # (Auto) Baso # (Auto) WBC Differential Differential Comment PT INR APTT D-Dimer Quant (PE/DVT) Sodium Potassium Chloride Carbon Dioxide Anion Gap BUN Creatinine Estimated GFR Random Glucose Calcium Magnesium 1.9 Total Bilirubin AST ALT Alkaline Phosphatase Total Creatine Kinase Troponin I B-Natriuretic Peptide 268 H Total Protein Albumin Urine Color Yellow Urine Clarity Clear Urine pH 5.0 Ur Specific [place] 1.023 Urine Protein Negative Urine Glucose (UA) Negative Urine Ketones Negative Urine Occult Blood Large H Urine Nitrate Negative Urine Bilirubin Negative Urine Urobilinogen Less than 2 Ur Leukocyte Esterase Trace H Urine RBC 33 H Urine WBC 9 H Ur Squamous Epith Cells 1 Urine Mucus Few H Micro UA Comment Culture indicated Ur Microscopic Review Not Reportable Urine Culture Comments Culture indicated - Imaging Impressions Chest X-Ray 05/02/18 19:33 CONCLUSION: The lungs are clear. Chest CTA 05/02/18 21:02 CONCLUSION: 1. The study is negative for pulmonary embolism. 2. 5 mm right lung nodule and multiple enlarged middle mediastinal and bilateral hilar nodes are nonspecific; malignancy needs to be ruled out. Caprini VTE Risk Assessment Caprini VTE Risk Assessment: No/Low Risk (score <= 1) Caprini Risk Assessment Model: Point Value = 1 Point Value = 2 Point Value = 3 Point Value = 5 Age 41-60 Minor surgery BMI > 25 kg/m2 Swollen legs Varicose veins or History of unexplained or recurrent spontaneous Oral contraceptives or hormone replacement Sepsis (< 1 month) Serious lung disease, including pneumonia (< 1 month) Abnormal pulmonary function Acute myocardial infarction Congestive heart failure (< 1 month) History of inflammatory bowel disease Medical patient at bed rest Age 61-74 Arthroscopic surgery Major open surgery (> 45 min) Laparoscopic surgery (> 45 min) Malignancy Confined to bed (> 72 hours) Immobilizing plaster cast Central venous access Age >= 75 History of VTE Family history of VTE Factor V Leiden Prothrombin [id number] Lupus anticoagulant Anticardiolipin antibodies Elevated serum homocysteine Heparin-induced thrombocytopenia Other congenital or acquired thrombophilia Stroke (< 1 month) Elective arthroplasty Hip, pelvis, or leg fracture Acute spinal cord injury (< 1 month) Prophylaxis Regimen: Total Risk Factor Score Risk Level Prophylaxis Regimen 0-1 Low Early ambulation 2 Moderate Order ONE of the following: *Sequential Compression Device (SCD) *Heparin 5000 units SQ BID 3-4 Higher Order ONE of the following medications: *Heparin 5000 units SQ TID *Enoxaparin/Lovenox 40 mg SQ daily (WT < 150 kg, CrCl > 30 mL/min) *Enoxaparin/Lovenox 30 mg SQ daily (WT < 150 kg, CrCl > 10-29 mL/min) *Enoxaparin/Lovenox 30 mg SQ BID (WT < 150 kg, CrCl > 30 mL/min) AND/OR *Sequential Compression Device (SCD) 5 or more Highest Order ONE of the following medications: *Heparin 5000 units SQ TID (Preferred with Epidurals) *Enoxaparin/Lovenox 40 mg SQ daily (WT < 150 kg, CrCl > 30 mL/min) *Enoxaparin/Lovenox 30 mg SQ daily (WT < 150 kg, CrCl > 10-29 mL/min) *Enoxaparin/Lovenox 30 mg SQ BID (WT < 150 kg, CrCl > 30 mL/min) AND *Sequential Compression Device (SCD) Assessment and Plan - Diagnosis (1) Preeclampsia in period Code(s): O14.95 - Unspecified pre-eclampsia, complicating the puerperium Status: Acute (2) Hilar lymphadenopathy Code(s): R59.0 - Localized enlarged lymph nodes Status: Acute - Plan Admit to labor and delivery At this time treat as if post preeclampsia: Criteria elevated BP necessitating hydralazine/ elevated LFTs /urine protein negative /recent delivery advanced maternal age/[employer] symptoms headache Plan medicine consult incidental finding on spiral CT hilar adenopathy
[2018-05-03] MEDS: Mag Sulf/Water 40 gm/1000 ml 40 GM/1,000 ML BAG IV.CONT SCH ×2 (04:25→22:47)
--- NOTE | 2018-05-03 09:07 | P.OBANTE ---
Subjective Interval History: Patient reports a headache rated at a 5 out of 10 this morning. She had just received Percocet and this improved her headache pain slightly. She has been eating and drinking. She denies nausea and vomiting, abdominal pain, denies changes in vision. She reports shortness of breath at times, but denied SOB at the time of my evaluation. She was concerned about staying at the hospital for 24 hours to receive her magnesium therapy. I explained the protocol. She understood and agrees. Her mother will be coming this morning to take care of her baby. Antepartum ROS: Denies: New complaints Objective Vital Signs and I&O: Vital Signs 05/02/18 19:08 05/02/18 19:21 05/02/18 22:12 Temperature 98.5 F Pulse Rate 47 L 46 L 44 L Respiratory Rate 18 20 16 Blood Pressure 164/94 H 173/84 H 153/83 H Pulse Oximetry 98 97 97 05/02/18 22:28 05/02/18 22:40 05/02/18 23:18 Temperature Pulse Rate 54 L 42 L Respiratory Rate 19 18 Blood Pressure 160/74 H 166/78 H Pulse Oximetry 97 96 97 05/02/18 23:19 05/02/18 23:43 05/03/18 00:07 Temperature Pulse Rate 42 L 45 L 47 L Respiratory Rate 16 Blood Pressure 143/70 H 139/89 Pulse Oximetry 97 96 05/03/18 04:40 05/03/18 04:54 05/03/18 05:15 Temperature Pulse Rate 54 L 72 66 Respiratory Rate 18 Blood Pressure 137/79 118/70 Pulse Oximetry 05/03/18 05:40 05/03/18 06:00 05/03/18 06:23 Temperature Pulse Rate 64 56 L Respiratory Rate 16 Blood Pressure 112/67 112/61 Pulse Oximetry 05/03/18 06:46 05/03/18 07:00 05/03/18 08:00 Temperature Pulse Rate 56 L 66 Respiratory Rate 18 16 Blood Pressure 110/67 120/63 Pulse Oximetry 05/03/18 08:59 05/03/18 09:00 Temperature 98.2 F Pulse Rate 63 Respiratory Rate 18 Blood Pressure 121/66 Pulse Oximetry Intake & Output 05/02/18 05/03/18 05/03/18 18:59 06:59 18:59 Weight 81.647 kg Lab and Micro Results: Laboratory Results - last 24 hr 05/02/18 05/02/18 05/02/18 19:40 19:40 19:40 WBC 5.4 RBC 3.80 L Hgb 12.3 Hct 35.0 MCV 92.2 MCH 32.5 MCHC 35.3 RDW 12.8 Plt Count 232 MPV 9.3 Neut % (Auto) 65.5 Lymph % (Auto) 26.3 Sebastian % (Auto) 6.5 Eos % (Auto) 1.2 Baso % (Auto) 0.5 Neut # (Auto) 3.5 Lymph # (Auto) 1.4 Sebastian # (Auto) 0.4 Eos # (Auto) 0.1 Baso # (Auto) 0.0 WBC Differential . Differential Comment Auto diff final PT 9.9 INR 1.0 APTT 27.3 D-Dimer Quant (PE/DVT) 3.71 H Sodium 141 Potassium 4.1 Chloride 109 H Carbon Dioxide 22.8 Anion Gap 9 BUN 17 Creatinine 0.62 Estimated GFR Greater than 89 Random Glucose 83 Calcium 8.5 Magnesium Total Bilirubin 0.5 AST 33 ALT 59 H Alkaline Phosphatase 161 H Total Creatine Kinase 86 Troponin I Less than 0.02 L B-Natriuretic Peptide Total Protein 6.8 Albumin 2.7 L Urine Color Urine Clarity Urine pH Ur Specific [place] Urine Protein Urine Glucose (UA) Urine Ketones Urine Occult Blood Urine Nitrate Urine Bilirubin Urine Urobilinogen Ur Leukocyte Esterase Urine RBC Urine WBC Ur Squamous Epith Cells Urine Mucus Micro UA Comment Ur Microscopic Review Urine Culture Comments 05/02/18 05/02/18 05/02/18 19:40 19:40 21:30 WBC RBC Hgb Hct MCV MCH MCHC RDW Plt Count MPV Neut % (Auto) Lymph % (Auto) Sebastian % (Auto) Eos % (Auto) Baso % (Auto) Neut # (Auto) Lymph # (Auto) Sebastian # (Auto) Eos # (Auto) Baso # (Auto) WBC Differential Differential Comment PT INR APTT D-Dimer Quant (PE/DVT) Sodium Potassium Chloride Carbon Dioxide Anion Gap BUN Creatinine Estimated GFR Random Glucose Calcium Magnesium 1.9 Total Bilirubin AST ALT Alkaline Phosphatase Total Creatine Kinase Troponin I B-Natriuretic Peptide 268 H Total Protein Albumin Urine Color Yellow Urine Clarity Clear Urine pH 5.0 Ur Specific [place] 1.023 Urine Protein Negative Urine Glucose (UA) Negative Urine Ketones Negative Urine Occult Blood Large H Urine Nitrate Negative Urine Bilirubin Negative Urine Urobilinogen Less than 2 Ur Leukocyte Esterase Trace H Urine RBC 33 H Urine WBC 9 H Ur Squamous Epith Cells 1 Urine Mucus Few H Micro UA Comment Culture indicated Ur Microscopic Review Not Reportable Urine Culture Comments Culture indicated Physical Exam: GENERAL: Well-nourished, well-developed patient, covering her eyes with ice pack , speaks in a low voice CARDIOVASCULAR: Regular rate and rhythm without murmurs, gallops, or rubs. RESPIRATORY: Breath sounds equal bilaterally. No accessory muscle use. ABDOMEN/GI: Abdomen soft, non-tender EXTREMITIES: No cyanosis or edema, non-tender calves, without signs of DVT, moves all extremities Assessment and Plan - Diagnosis (1) Preeclampsia in period Code(s): O14.95 - Unspecified pre-eclampsia, complicating the puerperium Status: Acute (2) Hilar lymphadenopathy Code(s): R59.0 - Localized enlarged lymph nodes Status: Acute - Plan --Post preeclampsia: Criteria elevated BP necessitating hydralazine/ elevated LFTs /urine protein negative /recent delivery advanced maternal age/ [employer]OR symptoms headache --Complete 24 hours of magnesium sulfate infusion. Magnesium was initiated at 4 :10 AM on --Monitor BPs: Currently stable 121/66 --Consult medicine for hilar adenopathy on CT
--- NOTE | 2018-05-03 10:42 | P.CON ---
History of Present Illness Service: Medicine Consult date: 05/03/18 Requesting Physician: Keturah Mcneill Reason for Consult: Lung nodule Primary Care Provider: UNKNOWN Family Provider: No Primary Care Physician Chief Complaint: Shortness of breath History of Present Illness: Ms. Lee is a 38 year old female who is 6 days post who presented to the ED on 05/02/2018 for acute shortness of breath. Patient underwent workup for potential pulmonary embolus, and an incidental 5mm lung nodule was found on spiral CT. Mediastinal and bilateral lymphadenopathy was also found. Patient has never had chest CT before. She is also currently having headaches. Review of Systems All other systems reviewed negative except as stated in HPI PMFSH - History History Provided By: Patient - Medical / Surgical Hx Neg / Unobtainable Medical Problems Denied: Yes - Medical History Medical History: Medical History (Last Reviewed 05/03/18 @ 13:31 by Nyla Hawkins MD) Patient denies medical problems - Surgical History Surgical History: Surgical History (Last Reviewed 05/03/18 @ 13:31 by Nyla Hawkins MD) Hx of tonsillectomy - Family History Family History: Family History (Last Updated 05/03/18 @ 13:25 by Nyla Hawkins MD) Grandparent Stroke - Social History I have reviewed the patient's Social History: Yes - Tobacco History Second Hand Smoke Exposure: No Tobacco Use In Past 30 Days: No Smoking Status: Former smoker Tobacco Type: Cigarettes Cigarettes Per Day: 7 Years Smoked: 2 - Alcohol History How Often Do You Have a Drink Containing Alcohol: Never - Substance Use History Substance History: No History of Abuse - Travel History Recent Travel in the [facility] Within the Last 8 Weeks: No Recent Travel Out of the Country Within the Last 8 Weeks: No - Immunization History Tetanus Immunization: >5 Years Medications and Allergies Allergies Allergy/AdvReac Type Severity Reaction Status Date / Time No Known Allergies Allergy Verified 04/25/18 17:15 Active Medications: Active Medications Acetaminophen (Tylenol) 650 mg PO Q4H PRN PRN Reason: PAIN SCALE 1 TO 2 Albuterol (Duoneb Neb (Prn)) 1 ampul NEB Q4HR NEB PRN PRN Reason: sob/wheezing Calcium Gluconate (Calcium Gluconate Inj) 1 gm IV.PUSH PRN PRN PRN Reason: Magnesium toxicity Lactated Ringer's (Lr 1000 Ml Inj) 1,000 mls @ 75 mls/hr IV.CONT .[id number] [facility] Last Admin: 05/03/18 04:10 Dose: 75 mls/hr Magnesium Sulfate (Magnesium Sulfate/Water 40 Gm/1000 Ml Premix) 40 gm in 1, 000 mls @ 50 mls/hr IV.CONT Q24H [facility] Last Admin: 05/03/18 04:25 Dose: 2 gm/hr, 50 mls/hr Ibuprofen (Motrin) 800 mg PO Q6H PRN PRN Reason: headache Oxycodone/Acetaminophen (Percocet 5/325 Mg) 1 tab PO Q4H PRN PRN Reason: Acute Pain 1-5 Last Admin: 05/03/18 07:46 Dose: 1 tab Sodium Chloride (Ns Flush) 2 ml IV.FLUSH UNSCH PRN PRN Reason: FLUSH AFTER USING IV ACCESS Sodium Chloride (Ns Flush) 2 ml IV.FLUSH BID [facility] Last Admin: 05/03/18 10:34 Dose: Not Given Sodium Chloride (Ns Flush) 2 ml IV.FLUSH PRN PRN PRN Reason: FLUSH AFTER USING IV ACCESS Physical Exam Vital signs: Vital Signs 05/02/18 19:08 05/02/18 19:21 05/02/18 22:12 Temperature 98.5 F Pulse Rate 47 L 46 L 44 L Respiratory Rate 18 20 16 Blood Pressure 164/94 H 173/84 H 153/83 H Pulse Oximetry 98 97 97 05/02/18 22:28 05/02/18 22:40 05/02/18 23:18 Temperature Pulse Rate 54 L 42 L Respiratory Rate 19 18 Blood Pressure 160/74 H 166/78 H Pulse Oximetry 97 96 97 05/02/18 23:19 05/02/18 23:43 05/03/18 00:07 Temperature Pulse Rate 42 L 45 L 47 L Respiratory Rate 16 Blood Pressure 143/70 H 139/89 Pulse Oximetry 97 96 05/03/18 04:40 05/03/18 04:54 05/03/18 05:15 Temperature Pulse Rate 54 L 72 66 Respiratory Rate 18 Blood Pressure 137/79 118/70 Pulse Oximetry 05/03/18 05:40 05/03/18 06:00 05/03/18 06:23 Temperature Pulse Rate 64 56 L Respiratory Rate 16 Blood Pressure 112/67 112/61 Pulse Oximetry 05/03/18 06:46 05/03/18 07:00 05/03/18 08:00 Temperature Pulse Rate 56 L 66 Respiratory Rate 18 16 Blood Pressure 110/67 120/63 Pulse Oximetry 05/03/18 08:59 05/03/18 09:00 05/03/18 09:05 Temperature 98.2 F Pulse Rate 63 66 Respiratory Rate 18 16 Blood Pressure 121/66 Pulse Oximetry 05/03/18 10:00 Temperature Pulse Rate 65 Respiratory Rate Blood Pressure 121/73 Pulse Oximetry Intake & Output 05/02/18 05/03/18 05/03/18 18:59 06:59 18:59 Weight 81.647 kg - Constitutional mild distress - Routine HEENT Exam Head: Present: normocephalic, atraumatic Eye: Present: EOMI, PERRL. Absent: scleral injection ENT: Present: mucous membranes moist - Routine Respiratory Exam Present: CTA bilaterally. Absent: rales, rhonchi, wheezes, crackles - Routine Cardiovascular Exam Present: RRR, S1, S2. Absent: murmur, gallop, rubs - Routine Abdominal Exam Present: soft, normoactive bowel sounds. Absent: tenderness, distended, rebound - Routine Extremities Exam Present: full ROM. Absent: cyanosis, clubbing, edema - Routine Skin Exam Present: intact, dry. Absent: cyanosis, erythema - Routine Neurological Exam Present: alert, oriented X3, CN II-XII intact, normal reflexes. Absent: sensory deficit, motor deficit Assessment and Plan - Plan Assessment/Plan: 1. Lung nodule Pulmonology consult placed Biopsy vs. PET outpatient 2. Hilar lymphadenopathy As above 3. Shortness of breath Breathing treatments PRN Code Status: Full
--- NOTE | 2018-05-03 12:37 | P.CON ---
History of Present Illness Primary Care Provider: UNKNOWN Family Provider: No Primary Care Physician Chief Complaint: Shortness of breath History of Present Illness: Ms. Lee is a pleasant 38 year old female who is 6 days post who presented to the ED on 05/02/2018 for acute shortness of breath. Patient underwent workup for potential pulmonary embolus, and an incidental 5mm lung nodule was found on spiral CT. Mediastinal and bilateral lymphadenopathy was also found. Patient has never had chest CT before. She is also currently having headaches 10/10 in intensity, non radiating, no paresthesia, associated blurry vision. No motor or sensory deficit. No n/v/d/c. No urinary complaints. No cp, lightheadedness, palpitations. No cough fever or chills. Review of Systems All other systems reviewed negative except as stated in HPI PMFSH - History History Provided By: Patient - Medical / Surgical Hx Neg / Unobtainable Medical Problems Denied: Yes - Medical History Medical History: Medical History (Last Reviewed 05/03/18 @ 13:31 by Nyla Hawkins MD) Patient denies medical problems - Surgical History Surgical History: Surgical History (Last Reviewed 05/03/18 @ 13:31 by Nyla Hawkins MD) Hx of tonsillectomy - Family History Family History: Family History (Last Updated 05/03/18 @ 13:25 by Nyla Hawkins MD) Grandparent Stroke - Tobacco History Second Hand Smoke Exposure: No Tobacco Use In Past 30 Days: No Smoking Status: Former smoker Tobacco Type: Cigarettes Cigarettes Per Day: 7 Years Smoked: 2 - Alcohol History How Often Do You Have a Drink Containing Alcohol: Never - Substance Use History Substance History: No History of Abuse - Travel History Recent Travel in the [facility] Within the Last 8 Weeks: No Recent Travel Out of the Country Within the Last 8 Weeks: No - Immunization History Tetanus Immunization: >5 Years Medications and Allergies Active Medications: Active Medications Acetaminophen (Tylenol) 650 mg PO Q4H PRN PRN Reason: PAIN SCALE 1 TO 2 Albuterol (Duoneb Neb (Prn)) 1 ampul NEB Q4HR NEB PRN PRN Reason: sob/wheezing Calcium Gluconate (Calcium Gluconate Inj) 1 gm IV.PUSH PRN PRN PRN Reason: Magnesium toxicity Lactated Ringer's (Lr 1000 Ml Inj) 1,000 mls @ 75 mls/hr IV.CONT .[id number] [facility] Last Admin: 05/03/18 04:10 Dose: 75 mls/hr Magnesium Sulfate (Magnesium Sulfate/Water 40 Gm/1000 Ml Premix) 40 gm in 1, 000 mls @ 50 mls/hr IV.CONT Q24H [facility] Last Admin: 05/03/18 04:25 Dose: 2 gm/hr, 50 mls/hr Ibuprofen (Motrin) 800 mg PO Q6H PRN PRN Reason: headache Oxycodone/Acetaminophen (Percocet 5/325 Mg) 1 tab PO Q4H PRN PRN Reason: Acute Pain 1-5 Last Admin: 05/03/18 11:31 Dose: 1 tab Sodium Chloride (Ns Flush) 2 ml IV.FLUSH UNSCH PRN PRN Reason: FLUSH AFTER USING IV ACCESS Sodium Chloride (Ns Flush) 2 ml IV.FLUSH BID [facility] Last Admin: 05/03/18 10:34 Dose: Not Given Sodium Chloride (Ns Flush) 2 ml IV.FLUSH PRN PRN PRN Reason: FLUSH AFTER USING IV ACCESS Allergies Allergy/AdvReac Type Severity Reaction Status Date / Time No Known Allergies Allergy Verified 04/25/18 17:15 Physical Exam Vital signs: Vital Signs 05/02/18 19:08 05/02/18 19:21 05/02/18 22:12 Temperature 98.5 F Pulse Rate 47 L 46 L 44 L Respiratory Rate 18 20 16 Blood Pressure 164/94 H 173/84 H 153/83 H Pulse Oximetry 98 97 97 05/02/18 22:28 05/02/18 22:40 05/02/18 23:18 Temperature Pulse Rate 54 L 42 L Respiratory Rate 19 18 Blood Pressure 160/74 H 166/78 H Pulse Oximetry 97 96 97 05/02/18 23:19 05/02/18 23:43 05/03/18 00:07 Temperature Pulse Rate 42 L 45 L 47 L Respiratory Rate 16 Blood Pressure 143/70 H 139/89 Pulse Oximetry 97 96 05/03/18 04:40 05/03/18 04:54 05/03/18 05:15 Temperature Pulse Rate 54 L 72 66 Respiratory Rate 18 Blood Pressure 137/79 118/70 Pulse Oximetry 05/03/18 05:40 05/03/18 06:00 05/03/18 06:23 Temperature Pulse Rate 64 56 L Respiratory Rate 16 Blood Pressure 112/67 112/61 Pulse Oximetry 05/03/18 06:46 05/03/18 07:00 05/03/18 08:00 Temperature Pulse Rate 56 L 66 Respiratory Rate 18 16 Blood Pressure 110/67 120/63 Pulse Oximetry 05/03/18 08:59 05/03/18 09:00 05/03/18 09:05 Temperature 98.2 F Pulse Rate 63 66 Respiratory Rate 18 16 Blood Pressure 121/66 Pulse Oximetry 05/03/18 10:00 05/03/18 10:55 05/03/18 11:25 Temperature Pulse Rate 65 69 70 Respiratory Rate 18 Blood Pressure 121/73 124/77 Pulse Oximetry 05/03/18 11:55 05/03/18 12:00 Temperature Pulse Rate 62 Respiratory Rate 16 Blood Pressure 121/61 Pulse Oximetry Intake & Output 05/02/18 05/03/18 05/03/18 18:59 06:59 18:59 Weight 81.647 kg Narrative: GENERAL: 38 yo F in bed appears sleepy. SKIN: Warm and dry. HEAD: Atraumatic. Normocephalic. EYES: Pupils equal and round. No scleral icterus. No injection or drainage. ENT: No nasal bleeding or discharge. Mucous membranes pink and moist. NECK: Trachea midline. No JVD. CARDIOVASCULAR: Regular rate and rhythm. RESPIRATORY: No accessory muscle use. Faint bibasilar crackles. No wheezing. GASTROINTESTINAL: Abdomen soft, non-tender, nondistended. MUSCULOSKELETAL: Extremities without clubbing, cyanosis, or edema. No obvious deformities. NEUROLOGICAL: Awake and alert. No obvious cranial nerve deficits. Motor grossly within normal limits. Five out of 5 muscle strength in the arms and legs. Normal speech. PSYCHIATRIC: Appropriate mood and affect; insight and judgment normal. Assessment and Plan - Plan 1. Lung nodule 5 mm by CTA. r/o malignancy, poss sarcoidosis ? Pulmonology consult placed Biopsy vs. PET as outpatient Duonebs as need CTA chest reviewed and findings discussed with the patient. No PE. Monitor O2 sat , give O2 keep O2 sat > 94% 2. Hilar lymphadenopathy As above 3. Shortness of breath Breathing treatments PRN 4. Headache prn norco DVT ppx scd/teds, ambulation Code Status: Full Discussed Condition With: patient, nurse
--- NOTE | 2018-05-03 14:47 | ECG ---
Date Performed: 05/02/2018 Time Performed: 19:22:10 PTAGE: 38 years EKG: SINUS BRADYCARDIA BORDERLINE ECG NO PREVIOUS TRACING DOCTOR: Salomón Qureshi Interpretating Date/Time 05/03/2018 14:44:03
--- NOTE | 2018-05-03 19:42 | MB ---
cc: Florencio Matias MD DATE: 05/03/2018 REASON FOR CONSULTATION: Lung nodule, mediastinal and hilar adenopathy. HISTORY OF PRESENT ILLNESS: The patient is a 38-year-old female who presented to the emergency room with shortness of breath and question of pulmonary embolus. A CT angiogram was done without evidence of pulmonary embolization. A 5 mm lung nodule with evidence of mediastinal and hilar adenopathy was noted. I am asked to see the patient at this time for same. At present, she has no shortness of breath. No fever, no chills, no cough, no expectoration. PAST MEDICAL HISTORY: No diabetes, no hypertension, no heart disease. SOCIAL HISTORY: She used to smoke until she got . She is day 6. FAMILY HISTORY: Noncontributory. REVIEW OF SYSTEMS: A 12-point review of systems as per HPI and past history, otherwise negative. MEDICATIONS: At present: 1. Acetaminophen. 2. Albuterol as needed. ALLERGIES: NONE KNOWN TO MEDICATION. REVIEW OF SYSTEMS: A 12-point review of systems is as per HPI and past history, otherwise negative. PHYSICAL EXAMINATION: GENERAL: The patient is alert. VITAL SIGNS: Temperature 98.4, pulse 70, respirations 18, blood pressure 120/70, oxygen saturation 96% on room air. HEENT: Unremarkable. Eyes without icterus. NECK: Without adenopathy or thyroid enlargement. Trachea is central. CHEST: Without dullness to percussion. Clear to auscultation. HEART: PMI not appreciated. S1, S2 audible. No murmur. No rub. ABDOMEN: Lax, audible bowel sounds. PSYCHIATRIC: No clubbing, cyanosis or edema. SKIN: Normal. No lymphadenopathy. LABORATORY DATA: White count 5.4, hemoglobin 12, hematocrit 35, platelets 232,000, INR 1.0. Sodium 141, potassium 4.1, BUN 17, creatinine 0.6. IMPRESSION: 1. A 5 mm lung nodule with evidence of enlarged mediastinal and hilar nodes. 2. No evidence of pulmonary embolism. PLAN: The patient is stable at present without shortness of breath or evidence of hypoxemia. Underlying bronchospasm may be the cause of her initial shortness of breath and p.r.n. nebulized albuterol or inhalation would be appropriate. Meanwhile, the patient may be discharged home and followed as an patient. A PET CT will be undertaken to assess the possibility of underlying malignancy. A bronchoscopy or other biopsy procedure will be undertaken should that become necessary. I do thank you for asking me to partake in Mrs. Field's care. Florencio Matias MD WWW/ct , 07:08 PM , 07:19 PM
[2018-05-03] MEDS: Butalbital/APAP/Caff 50/325/40 MG Tablet PO PRN ×2 (19:47→22:32)
[2018-05-04] MEDS ORDERED: Morphine Sulfate Inj 8 MG/ML Vial SQ ONE (04:14)
[2018-05-04 09:01] VITALS: PULSE 67
--- NOTE | 2018-05-04 09:09 | P.OBGPN ---
Subjective Interval History: Patient reports that her headache from overnight resolved following fioricet and morphine overnight. She denies nausea and vomiting, abdominal pain, denies changes in vision. Denies any recurrent SOB. Denies headache/blurry vision/RUQ pain/change in urination. Antepartum ROS: Denies: New complaints Objective VS STABLE THIS MORNING: BP WNL Lab and Micro Results: Laboratory Results - last 24 hr 05/02/18 05/02/18 05/02/18 19:40 19:40 19:40 WBC 5.4 RBC 3.80 L Hgb 12.3 Hct 35.0 MCV 92.2 MCH 32.5 MCHC 35.3 RDW 12.8 Plt Count 232 MPV 9.3 Neut % (Auto) 65.5 Lymph % (Auto) 26.3 [place] % (Auto) 6.5 Eos % (Auto) 1.2 Baso % (Auto) 0.5 Neut # (Auto) 3.5 Lymph # (Auto) 1.4 [place] # (Auto) 0.4 Eos # (Auto) 0.1 Baso # (Auto) 0.0 WBC Differential . Differential Comment Auto diff final PT 9.9 INR 1.0 APTT 27.3 D-Dimer Quant (PE/DVT) 3.71 H Sodium 141 Potassium 4.1 Chloride 109 H Carbon Dioxide 22.8 Anion Gap 9 BUN 17 Creatinine 0.62 Estimated GFR Greater than 89 Random Glucose 83 Calcium 8.5 Magnesium Total Bilirubin 0.5 AST 33 ALT 59 H Alkaline Phosphatase 161 H Total Creatine Kinase 86 Troponin I Less than 0.02 L B-Natriuretic Peptide Total Protein 6.8 Albumin 2.7 L Urine Color Urine Clarity Urine pH Ur Specific [place] Urine Protein Urine Glucose (UA) Urine Ketones Urine Occult Blood Urine Nitrate Urine Bilirubin Urine Urobilinogen Ur Leukocyte Esterase Urine RBC Urine WBC Ur Squamous Epith Cells Urine Mucus Micro UA Comment Ur Microscopic Review Urine Culture Comments 05/02/18 05/02/18 05/02/18 19:40 19:40 21:30 WBC RBC Hgb Hct MCV MCH MCHC RDW Plt Count MPV Neut % (Auto) Lymph % (Auto) [place] % (Auto) Eos % (Auto) Baso % (Auto) Neut # (Auto) Lymph # (Auto) [place] # (Auto) Eos # (Auto) Baso # (Auto) WBC Differential Differential Comment PT INR APTT D-Dimer Quant (PE/DVT) Sodium Potassium Chloride Carbon Dioxide Anion Gap BUN Creatinine Estimated GFR Random Glucose Calcium Magnesium 1.9 Total Bilirubin AST ALT Alkaline Phosphatase Total Creatine Kinase Troponin I B-Natriuretic Peptide 268 H Total Protein Albumin Urine Color Yellow Urine Clarity Clear Urine pH 5.0 Ur Specific [place] 1.023 Urine Protein Negative Urine Glucose (UA) Negative Urine Ketones Negative Urine Occult Blood Large H Urine Nitrate Negative Urine Bilirubin Negative Urine Urobilinogen Less than 2 Ur Leukocyte Esterase Trace H Urine RBC 33 H Urine WBC 9 H Ur Squamous Epith Cells 1 Urine Mucus Few H Micro UA Comment Culture indicated Ur Microscopic Review Not Reportable Urine Culture Comments Culture indicated Physical Exam: GENERAL: Well-nourished, well-developed patient, alert and conversational CARDIOVASCULAR: Regular rate and rhythm without murmurs, gallops, or rubs. RESPIRATORY: Breath sounds equal bilaterally. No accessory muscle use. ABDOMEN/GI: Abdomen soft, non-tender EXTREMITIES: No cyanosis or edema, non-tender calves, without signs of DVT, moves all extremities Assessment and Plan - Diagnosis (1) Preeclampsia in period Code(s): O14.95 - Unspecified pre-eclampsia, complicating the puerperium Status: Acute (2) Hilar lymphadenopathy Code(s): R59.0 - Localized enlarged lymph nodes Status: Acute - Plan --Post preeclampsia: Criteria elevated BP with headache necessitating hydralazine, 24hours mag -- BP normalized immediately following hydralazine, no high BPs in last 24hrs -- Headache resolved with medical management -- Pulmonology: will f/u outpatient with PET scan and possible bronch for bx of nodes, SOB on admission was likely sleep apnea vs congestion -- plan to D/C with ibuprofen 800 QID and Fioricet for migraines
--- NOTE | 2018-05-04 09:15 | P.PN ---
Subjective Interval history: alert no sob Physical Exam Vital signs: Vital Signs 05/03/18 10:00 05/03/18 10:55 05/03/18 11:25 Temperature Pulse Rate 65 69 70 Respiratory Rate 18 Blood Pressure 121/73 124/77 05/03/18 11:55 05/03/18 12:00 05/03/18 12:55 Temperature Pulse Rate 62 71 Respiratory Rate 16 16 Blood Pressure 121/61 115/64 05/03/18 13:55 05/03/18 14:55 05/03/18 15:55 Temperature Pulse Rate 62 81 68 Respiratory Rate 18 18 16 Blood Pressure 122/76 118/64 114/69 05/03/18 16:55 05/03/18 17:00 05/03/18 17:55 Temperature 98.4 F Pulse Rate 69 76 Respiratory Rate 20 Blood Pressure 118/78 05/03/18 18:00 05/03/18 18:55 05/03/18 19:55 Temperature Pulse Rate 88 75 Respiratory Rate 18 16 16 Blood Pressure 124/74 123/77 05/03/18 20:05 05/03/18 20:06 05/03/18 20:25 Temperature Pulse Rate 74 72 Respiratory Rate 6 L Blood Pressure 129/80 05/03/18 21:25 05/03/18 21:55 05/04/18 00:20 Temperature Pulse Rate 65 68 77 Respiratory Rate 18 Blood Pressure 118/73 131/76 145/79 H 05/04/18 01:30 05/04/18 03:00 05/04/18 04:04 Temperature Pulse Rate 85 67 70 Respiratory Rate 16 16 Blood Pressure 115/57 L 111/65 124/74 05/04/18 05:00 05/04/18 06:00 05/04/18 07:01 Temperature Pulse Rate 68 66 62 Respiratory Rate 18 Blood Pressure 135/78 128/73 128/74 05/04/18 07:20 05/04/18 08:01 Temperature Pulse Rate 67 Respiratory Rate 18 Blood Pressure 139/72 Intake & Output 05/03/18 05/04/18 05/04/18 18:59 06:59 18:59 Intake Total 1000 / 1000 1000 / 1000 Balance 1000 / 1000 1000 / 1000 Intake: IV 1000 / 1000 1000 / 1000 LR 1000 mL Inj 1,000 ML @ 75 1000 / 1000 mls/hr IV.CONT .[id number] [facility] Rx# :[id number] Magnesium Sulfate/Water 40 gm/ 1000 / 1000 1000 ml Premix 40 gm In 1,000 ml @ 2 GM/HR 50 mls/hr IV.CONT Q24H [facility] Rx#:[id number] Narrative: GENERAL: 38 yo F in bed appears sleepy. SKIN: Warm and dry. HEAD: Atraumatic. Normocephalic. EYES: Pupils equal and round. No scleral icterus. No injection or drainage. ENT: No nasal bleeding or discharge. Mucous membranes pink and moist. NECK: Trachea midline. No JVD. CARDIOVASCULAR: Regular rate and rhythm. RESPIRATORY: No accessory muscle use. Faint bibasilar crackles. No wheezing. GASTROINTESTINAL: Abdomen soft, non-tender, nondistended. MUSCULOSKELETAL: Extremities without clubbing, cyanosis, or edema. No obvious deformities. NEUROLOGICAL: Awake and alert. No obvious cranial nerve deficits. Motor grossly within normal limits. Five out of 5 muscle strength in the arms and legs. Normal speech. PSYCHIATRIC: Appropriate mood and affect; insight and judgment normal. Results - Labs CBC & Chem 7: 05/02/18 19:40 05/02/18 19:40 Microbiology 05/02/18 21:30 Clean Catch Urine Urine Culture - Preliminary Results Pending Assessment and Plan - Plan lung nodule mediastinal/hilar adenopathy/lung nodule sob, resolved , asthma plan prn albuterol bronchoscopy out patient
[2018-05-04 11:53] VITALS: BP 137/78; RESP 20; TEMP 98.3
--- NOTE | 2018-05-04 12:26 | P.PN ---
Subjective Interval history: In nad, feels much better and says she is back at her baseline. No more sob. No wheezing cough fever or chills. No headache. BP has been controlled. Physical Exam Vital signs: Vital Signs 05/03/18 12:55 05/03/18 13:55 05/03/18 14:55 Temperature Pulse Rate 71 62 81 Respiratory Rate 16 18 18 Blood Pressure 115/64 122/76 118/64 05/03/18 15:55 05/03/18 16:55 05/03/18 17:00 Temperature 98.4 F Pulse Rate 68 69 Respiratory Rate 16 20 Blood Pressure 114/69 118/78 05/03/18 17:55 05/03/18 18:00 05/03/18 18:55 Temperature Pulse Rate 76 88 Respiratory Rate 18 16 Blood Pressure 124/74 123/77 05/03/18 19:55 05/03/18 20:05 05/03/18 20:06 Temperature Pulse Rate 75 74 Respiratory Rate 16 6 L Blood Pressure 129/80 05/03/18 20:25 05/03/18 21:25 05/03/18 21:55 Temperature Pulse Rate 72 65 68 Respiratory Rate Blood Pressure 118/73 131/76 05/04/18 00:20 05/04/18 01:30 05/04/18 03:00 Temperature Pulse Rate 77 85 67 Respiratory Rate 18 16 Blood Pressure 145/79 H 115/57 L 111/65 05/04/18 04:04 05/04/18 05:00 05/04/18 06:00 Temperature Pulse Rate 70 68 66 Respiratory Rate 16 18 Blood Pressure 124/74 135/78 128/73 05/04/18 07:01 05/04/18 07:20 05/04/18 08:01 Temperature Pulse Rate 62 67 Respiratory Rate 18 Blood Pressure 128/74 139/72 05/04/18 10:30 Temperature 98.3 F Pulse Rate 67 Respiratory Rate 20 Blood Pressure 137/78 Intake & Output 05/03/18 05/04/18 05/04/18 18:59 06:59 18:59 Intake Total 1000 / 1000 1000 / 1000 Balance 1000 / 1000 1000 / 1000 Intake: IV 1000 / 1000 1000 / 1000 LR 1000 mL Inj 1,000 ML @ 75 1000 / 1000 mls/hr IV.CONT .[id number] [facility] Rx# :[id number] Magnesium Sulfate/Water 40 gm/ 1000 / 1000 1000 ml Premix 40 gm In 1,000 ml @ 2 GM/HR 50 mls/hr IV.CONT Q24H [facility] Rx#:[id number] Narrative: GENERAL: 38 yo F in bed appears in nad. SKIN: Warm and dry. HEAD: Atraumatic. Normocephalic. EYES: Pupils equal and round. No scleral icterus. No injection or drainage. ENT: No nasal bleeding or discharge. Mucous membranes pink and moist. NECK: Trachea midline. No JVD. CARDIOVASCULAR: Regular rate and rhythm. RESPIRATORY: No accessory muscle use. CTA bilat. No wheezing. GASTROINTESTINAL: Abdomen soft, non-tender, nondistended. MUSCULOSKELETAL: Extremities without clubbing, cyanosis, or edema. No obvious deformities. NEUROLOGICAL: Awake and alert. No obvious cranial nerve deficits. Motor grossly within normal limits. Five out of 5 muscle strength in the arms and legs. Normal speech. PSYCHIATRIC: Appropriate mood and affect; insight and judgment normal. Results - Labs CBC & Chem 7: 05/02/18 19:40 05/02/18 19:40 Microbiology 05/02/18 21:30 Clean Catch Urine Urine Culture - Preliminary Results Pending Assessment and Plan - Plan 1. Lung nodule 5 mm by CTA. R/o malignancy, poss sarcoidosis ? Pulmonology consult , plans for bronch as OP , patient to follow up as OP with pulm,. Seen here by Dr Byrd. Biopsy vs. PET as outpatient Duonebs as need CTA chest reviewed and findings discussed with the patient. No PE. Monitor O2 sat , give O2 keep O2 sat > 94% 2. Hilar lymphadenopathy As above 3. Shortness of breath Breathing treatments PRN 4. Headache, resolved. prn norco Preeclampsia: BP is better controlled. Continue the same management. DVT ppx scd/teds, ambulation Code Status: Full Discussed Condition With: patient, nurse Cleared for DC by hospitalist the patient is medically stable for DC. To follow up as OP with PCP and consultants.
== END 2018-05-04 12:30 | disposition home or self-care (01) ==
LOC: NEPC 18:48 → NEDA 23:25 → H2E 05-03 02:42
PROVIDERS: ADMIT Obstetrics & Gynecology; ATTEND Obstetrics & Gynecology

== ENCOUNTER 2018-05-05 20:08 | Observation (INO) ==
[2018-05-05] MEDS ORDERED: Morphine Sulfate Inj 2 MG/ML Vial IV.PUSH ONE (23:11)
[2018-05-05] MEDS ORDERED: Sod Chloride 0.9% Inj 1,000 ML IV.SIG ONE (23:11)
[2018-05-05 23:37] LABS: Baso % (Auto) 0.4 % (0.0-2.0); Eos # (Auto) 0.1 th/mm3 (0.0-0.4); Eos % (Auto) 1.3 % (0.0-4.0); Hematocrit 38.4 % (35.0-46.0); Hemoglobin 13.5 gm/dL (11.6-15.3); Lymph # (Auto) 1.6 th/mm3 (1.0-4.8); Lymph % (Auto) 27.7 % (9.0-44.0); Mean Corpuscular HGB Conc 35.2 % (32.0-36.0); Mean Corpuscular Hemoglobin 32.7 pg (27.0-34.0); Mean Corpuscular Volume 93.1 fL (80.0-100.0); Mean Platelet Volume 8.7 fL (7.0-11.0); Mono # (Auto) 0.4 th/mm3 (0.0-0.9); Mono % (Auto) 7.2 % (0.0-8.0); Neut # (Auto) 3.6 th/mm3 (1.8-7.7); Neut % (Auto) 63.4 % (16.0-70.0); Platelet Count 293 th/mm3 (150-450); Red Blood Count 4.13 mil/mm3 (4.00-5.30); Red Cell Distribution Width 13.1 % (11.6-17.2); White Blood Count 5.6 th/mm3 (4.0-11.0)
--- NOTE | 2018-05-05 23:45 | ED ---
HPI General Chief Complaint: Neck Pain/Injury Stated Complaint: neck pain/respiratory Time Seen by Provider: 05/05/18 23:00 Source: patient Mode of arrival: ambulatory Limitations: no limitations History of Present Illness HPI Narrative: Old female presents to the emergency department for evaluation of right posterior neck pain that worsened today. Patient states that she was discharged yesterday from the hospital for preeclampsia. States she had neck pain at that time however, has worsened throughout the day. Patient states that the pain is located in the right lateral occipital region and points to the mastoid area and is nonradiating. The pain is constant, without palliative factors. States chewing increases her pain. She says she continues to 'gasp' whenever she falls asleep. Related Data Previous Rx's Medication Instructions Recorded tssrwuwvwu-lrxouvayxmkom-ejec 2 cap PO Q4H PRN 30 Days #20 cap 05/04/18 [Fioricet] ibuprofen 800 mg PO Q12H PRN 30 Days #60 tab 05/04/18 Allergies Allergy/AdvReac Type Severity Reaction Status Date / Time No Known Allergies Allergy Verified 04/25/18 17:15 Review of Systems ROS: all other systems reviewed are negative Constitutional Reports difficulty sleeping and Reports stops breathing during sleep Eyes Denies blurry vision and Denies change in vision ENT Reports as per HPI Cardiovascular Denies chest pain and Denies diaphoresis Respiratory Reports as per HPI PMFSH Family History Family History Grandparent Stroke Social History Social History Substance History: No History of Abuse Second Hand Smoke Exposure: No Smoking Status: Former smoker Tobacco Type: Cigarettes Cigarettes Per Day: 7 Years Smoked: 2 Pack-Years: 0.70 How Often Do You Have a Drink Containing Alcohol: Never Recent Travel in [facility] within the Last 8 Weeks: No Recent Out of Country Travel within the Last 8 Weeks: No Immunization History Tetanus Immunization: >5 Years Exam Narrative Exam Narrative: GENERAL: Well-developed, well-nourished in mild distress SKIN: Focused skin assessment warm/dry. HEAD: Atraumatic. Normocephalic. EYES: Pupils equal and round. No scleral icterus. No injection or drainage. ENT: No nasal bleeding or discharge. Mucous membranes pink and moist. NECK: Trachea midline. No JVD. Tenderness palpation just below the right mastoid, lateral occipital region. No tender cords present. CARDIOVASCULAR: Regular rate and rhythm. No murmur appreciated. RESPIRATORY: No accessory muscle use. Clear to auscultation. Breath sounds equal bilaterally. GASTROINTESTINAL: Abdomen soft, non-tender, nondistended. Hepatic and splenic margins not palpable. MUSCULOSKELETAL: No obvious deformities. No clubbing. No cyanosis. No edema. NEUROLOGICAL: Awake and alert. No obvious cranial nerve deficits. Motor grossly within normal limits. Normal speech. PSYCHIATRIC: Appropriate mood and affect; insight and judgment normal. Course Reevaluation(s) Reevaluation #1: Patient continues to have headache. Spoke with OB hospitalist. Will come down and evaluate the patient. Blood pressure remains elevated. Time: 02:37 Initial Documented Vital Signs Temperature 98.7 F 05/05/18 20:33 Pulse Rate 60 05/05/18 20:33 Respiratory Rate 16 05/05/18 20:33 Blood Pressure 148/98 H 05/05/18 20:33 Pulse Oximetry 99 05/05/18 20:33 Last Documented Vital Signs Temperature 98.7 F 05/05/18 20:33 Pulse Rate 44 L 05/06/18 04:56 Respiratory Rate 18 05/06/18 04:56 Blood Pressure 161/71 H 05/06/18 04:56 Pulse Oximetry 97 05/06/18 04:56 Medical Decision Making AMY Attestation AMY supervised visit: Yes Attestation: The history, exam, and medical decision-making in the associated mid-level provider note were completed with my assistance. I reviewed and agree with the findings presented. I attest that I had a [id number] encounter with the patient on the same day, and personally performed and documented my assessment and findings in the medical record. *My assessment and Findings: 38-year-old woman, 10 days , excruciating headaches been ongoing, associated with breathing difficulties, etiology is unclear. She was admitted to rule out preeclampsia due to her elevated blood pressure. During her workup she was also found to have some hilar and mediastinal adenopathy of unclear significance. She was discharged home. Since being home she had persistent severe headache that is been intermittent but worsening, was severe again today. She is also continue to have intermittent episodes of difficulty breathing. In the ED she required multiple doses of opiates, and still had severe headache. She was seen by Dr. Poe, with OB, who felt that this was not preeclampsia and was likely musculoskeletal related to neck pain. She does have a lot of neck pain and stiffness. A repeat assessment, blood pressure is mildly improved with pain control however she remains in severe head pain. Other potential concerning etiologies include SAH and dural vein thrombosis. I attempted an LP but was just getting a minimal amount of grossly bloody spinal fluid that I think was traumatic given to the difficulty in the LP. Given this the procedure was abandoned. Would like to admit the patient for rule out dural vein thrombosis, SH, and consideration for neurology consult if needed. MDM Narrative Medical decision making narrative: noncontributory.38-year-old female presents to the emergency department for evaluation of right lateral occipital pain that has been present for several days. After a couple of days stay for preeclampsia. Vital signs: Blood pressure 182/84, heart rate 46. Afebrile. Morphine administered for pain. I discussed this patient with my attending. He recommended further testing and imaging to better evaluated this patient. Labs demonstrate electrolytes normal. Magnesium 1.9. Alk phos 146. BNP 114, down from 268 couple of days ago. CBC normal. Chest x-ray without acute process. Medical Screen Exam Complete: Yes Emergency Medical Condition: Yes Differential Diagnosis Differential Diagnosis: Mastoiditis, torticollis, muscle spasms, arthritis, dissection Lab Data Result diagrams: 05/05/18 22:25 05/05/18 22:25 Lab Results 05/05/18 05/05/18 05/05/18 Range/Units 22:25 22:25 22:25 WBC 5.6 (4.0-11.0) th/mm3 RBC 4.13 (4.00-5.30) mil/mm3 Hgb 13.5 (11.6-15.3) gm/dL Hct 38.4 (35.0-46.0) % MCV 93.1 (80.0-100.0) fL MCH 32.7 (27.0-34.0) pg MCHC 35.2 (32.0-36.0) % RDW 13.1 (11.6-17.2) % Plt Count 293 (150-450) th/mm3 MPV 8.7 (7.0-11.0) fL Neut % (Auto) 63.4 (16.0-70.0) % Lymph % (Auto) 27.7 (9.0-44.0) % [place] % (Auto) 7.2 (0.0-8.0) % Eos % (Auto) 1.3 (0.0-4.0) % Baso % (Auto) 0.4 (0.0-2.0) % Neut # (Auto) 3.6 (1.8-7.7) th/mm3 Lymph # (Auto) 1.6 (1.0-4.8) th/mm3 [place] # (Auto) 0.4 (0.0-0.9) th/mm3 Eos # (Auto) 0.1 (0.0-0.4) th/mm3 Baso # (Auto) 0.0 (0.0-0.2) th/mm3 WBC Differential . Differential Comment Auto diff final PT 10.0 (9.8-11.6) sec INR 1.0 Ratio APTT 27.0 (24.3-30.1) sec Sodium 144 (136-145) meq/L Potassium 4.4 (3.5-5.1) meq/L Chloride 109 H (98-107) meq/L Carbon Dioxide 24.8 (21.0-32.0) meq/L Anion Gap 10 (5-15) meq/L BUN 17 (7-18) mg/dL Creatinine 0.72 (0.50-1.00) mg/dL Estimated GFR Greater than 89 (>89) mL/min Random Glucose 83 (74-106) mg/dL Calcium 8.6 (8.5-10.1) mg/dL Magnesium 1.9 (1.5-2.5) mg/dL Total Bilirubin 0.5 (0.2-1.0) mg/dL AST 16 (15-37) U/L ALT 42 (10-53) U/L Alkaline Phosphatase 146 H (45-117) U/L B-Natriuretic Peptide (0-100) pg/mL Total Protein 7.1 (6.4-8.2) g/dL Albumin 3.2 L (3.4-5.0) g/dL Urine Color (Yellw/Straw) Urine Clarity (Clear) Urine pH (5.0-8.5) Ur Specific [place] (1.002-1.035) Urine Protein (Neg-Trace) mg/dL Urine Glucose (UA) (Negative) mg/dL Urine Ketones (Negative) mg/dL Urine Occult Blood (Negative) Urine Nitrate (Negative) Urine Bilirubin (Negative) Urine Urobilinogen (Less than 2) mg/dL Ur Leukocyte Esterase (Negative) Urine RBC (0-3) /hpf Urine WBC (0-5) /hpf Ur Squamous Epith Cells (0-5) /hpf Urine Mucus (Occasional) /lpf Micro UA Comment Ur Microscopic Review Urine Culture Comments 05/05/18 05/06/18 Range/Units 22:25 02:00 WBC (4.0-11.0) th/mm3 RBC (4.00-5.30) mil/mm3 Hgb (11.6-15.3) gm/dL Hct (35.0-46.0) % MCV (80.0-100.0) fL MCH (27.0-34.0) pg MCHC (32.0-36.0) % RDW (11.6-17.2) % Plt Count (150-450) th/mm3 MPV (7.0-11.0) fL Neut % (Auto) (16.0-70.0) % Lymph % (Auto) (9.0-44.0) % [place] % (Auto) (0.0-8.0) % Eos % (Auto) (0.0-4.0) % Baso % (Auto) (0.0-2.0) % Neut # (Auto) (1.8-7.7) th/mm3 Lymph # (Auto) (1.0-4.8) th/mm3 [place] # (Auto) (0.0-0.9) th/mm3 Eos # (Auto) (0.0-0.4) th/mm3 Baso # (Auto) (0.0-0.2) th/mm3 WBC Differential Differential Comment PT (9.8-11.6) sec INR Ratio APTT (24.3-30.1) sec Sodium (136-145) meq/L Potassium (3.5-5.1) meq/L Chloride (98-107) meq/L Carbon Dioxide (21.0-32.0) meq/L Anion Gap (5-15) meq/L BUN (7-18) mg/dL Creatinine (0.50-1.00) mg/dL Estimated GFR (>89) mL/min Random Glucose (74-106) mg/dL Calcium (8.5-10.1) mg/dL Magnesium (1.5-2.5) mg/dL Total Bilirubin (0.2-1.0) mg/dL AST (15-37) U/L ALT (10-53) U/L Alkaline Phosphatase (45-117) U/L B-Natriuretic Peptide 114 H (0-100) pg/mL Total Protein (6.4-8.2) g/dL Albumin (3.4-5.0) g/dL Urine Color Yellow (Yellw/Straw) Urine Clarity Hazy H (Clear) Urine pH 6.0 (5.0-8.5) Ur Specific [place] 1.019 (1.002-1.035) Urine Protein Negative (Neg-Trace) mg/dL Urine Glucose (UA) Negative (Negative) mg/dL Urine Ketones Negative (Negative) mg/dL Urine Occult Blood Large H (Negative) Urine Nitrate Negative (Negative) Urine Bilirubin Negative (Negative) Urine Urobilinogen Less than 2 (Less than 2) mg/dL Ur Leukocyte Esterase Moderate H (Negative) Urine RBC 2 (0-3) /hpf Urine WBC 4 (0-5) /hpf Ur Squamous Epith Cells 5 (0-5) /hpf Urine Mucus Few H (Occasional) /lpf Micro UA Comment Culture not ind Ur Microscopic Review Not Reportable Urine Culture Comments Culture not ind Imaging Data Radiologist's impression: Chest X-Ray 05/05/18 23:41 CONCLUSION: Negative examination. Head CT 05/06/18 00:17 CONCLUSION: 1. Negative CT Head non contrast. . Discharge Plan Discharge Disposition Patient Disposition: 30 Still Patient Discharge Condition Condition: Stable Physicians Team ED Provider: Diaz Gonzalez ED Midlevel Provider: Mary Maya Primary Care Provider: UNKNOWN, Rxs /Orders / Referrals /Forms Prescriptions: No Action zufselsnol-dshsaexlzupvo-ksvp [Fioricet] 50-300-40 mg Capsule 2 cap PO Q4H PRN (Reason: Migraine Headache) 30 Days Qty: 20 RF: 0 ibuprofen 800 mg Tablet 800 mg PO Q12H PRN (Reason: For Cramping) 30 Days Qty: 60 RF: 0 Discharge Interventions Interventions: Vital Signs Last Done: 05/06/18 04:56 Status ED Status: With Doctor
[2018-05-05 23:49] LABS: Alanine Aminotransferase 42 U/L (10-53); Albumin 3.2 g/dL (3.4-5.0); Anion Gap 10 meq/L (5-15); Aspartate Aminotransferase 16 U/L (15-37); Blood Urea Nitrogen 17 mg/dL (7-18); Calcium 8.6 mg/dL (8.5-10.1); Carbon Dioxide 24.8 meq/L (21.0-32.0); Chloride 109 meq/L (98-107); Glomerular Filtration Rate Greater Than 89 mL/min (>89); Glucose,Random 83 mg/dL (74-106); Magnesium 1.9 mg/dL (1.5-2.5); Potassium 4.4 meq/L (3.5-5.1); Sodium 144 meq/L (136-145)
[2018-05-05 23:52] LABS: Alkaline Phosphatase 146 U/L (45-117); Total Protein 7.1 g/dL (6.4-8.2)
--- NOTE | 2018-05-06 00:06 | XR ---
EXAM DATE: 05/05/2018 11:41 PM EDT AGE/SEX: 38 years / Female INDICATIONS: Difficulty breathing for 3 days CLINICAL DATA: This is the patient's initial encounter. Patient reports that signs and symptoms have been present for 3 days and indicates a pain score of 5/10. MEDICAL/SURGICAL HISTORY: None. None. COMPARISON: [facility] – [place] CHEST 1V SINGLE AP, 05/02/2018. . FINDINGS: A single AP view of the chest demonstrates the lungs to be symmetrically aerated without evidence of mass, infiltrate or effusion. The cardiomediastinal contours are unremarkable. Osseous structures a re intact. CONCLUSION: Negative examination. Electronically signed by: Nickolas Ching MD 05/06/2018 12:05 AM EDT
--- NOTE | 2018-05-06 01:33 | CT ---
EXAM DATE: 05/06/2018 12:35 AM EDT AGE/SEX: 38 years / Female INDICATIONS: Right lateral occipital pain. CLINICAL DATA: This is the patient's initial encounter. Patient reports that signs and symptoms have been present for 1 day and indicates a pain score of 7/10. MEDICAL/SURGICAL HISTORY: Hypertension. Tonsillectomy. RADIATION DOSE: 38.84 CTDI (mGy) COMPARISON: No prior exams available for comparison. TECHNIQUE: CT of the head without contrast. Using automated exposure control and adjustment of the mA and/or kV according to patient size, radiation dose was kept as low as reasonably achievable to ob tain optimal diagnostic quality images. DICOM format image data is available electronically for revi ew and comparison. FINDINGS: Cerebrum: The ventricles are normal for age. No evidence of midline shift, mass lesion, hemorrhage or acute infarction. No extraaxial fluid collections are seen. Posterior Fossa: The cerebellum and brainstem are intact. The 4th ventricle is midline. The cerebe llopontine angle is unremarkable. Extracranial: The visualized portion of the orbits is intact. Skull: The calvaria is intact. No evidence of skull fracture. CONCLUSION: 1. Negative CT Head non contrast. . Electronically signed by: Nickolas Ching MD 05/06/2018 1:32 AM EDT
[2018-05-06 02:29] LABS: Bilirubin,Urine Negative (Negative); Clarity,Urine Hazy (Clear); Color,Urine Yellow (Yellw/Straw); Glucose,Urine (UA) Negative (Negative); Leukocyte Esterase,Urine Moderate (Negative); Mucus,Urine Few /lpf (Occasional); Nitrite,Urine Negative (Negative); Specific Gravity,Urine 1.019 (1.002-1.035); Squamous Epithelial Cell,Urine 5 /hpf (0-5)
[2018-05-06] MEDS ORDERED: hydrALAZINE HCl Inj 20 MG/ML Vial IV.PUSH ONE (02:54)
[2018-05-06] MEDS ORDERED: Morphine Inj 4 MG/ML Vial IV.PUSH ONE (02:54)
--- NOTE | 2018-05-06 03:35 | MB ---
cc: Fredi Blanco MD DATE: 05/05/2018 CHIEF COMPLAINT: Neck pain and some shortness of breath. HISTORY OF PRESENT ILLNESS: This is a 38-year-old white female who has had a complicated course and has been in the hospital for preeclampsia. She was just recently released 2 days ago when they were getting her medicine for a terrible migraine and gave her 24 hours of magnesium sulfate for the preeclampsia. Now she comes in with a 1-day history of severe neck pain on the right posterior neck. It hurts more when she moves. It is sharp and stabbing. It has not worsened. She is taking the Motrin for the pain, but it still seems to hurt quite badly. PAST SURGICAL HISTORY: Remarkable for tonsillectomy. PAST MEDICAL HISTORY: Remarkable for preeclampsia. SOCIAL HISTORY: She is a former smoker. No alcohol or drugs. REVIEW OF SYSTEMS: No scatoma. She does have severe neck pain. She does have a little bit of shortness of breath, but she wakes up gasping sometimes. She has no other complaints. PHYSICAL EXAMINATION: GENERAL: Well-developed, well-nourished female, in mild distress, lying in the gurney. HEENT: Normocephalic, atraumatic. NECK: Supple. Along the right side of the paraspinal muscles, she is quite tender to touch. CHEST: Clear to auscultation. HEART: Has a regular rate and rhythm. Slightly bradycardic. ABDOMEN: Soft and nontender. EXTREMITIES: There is no clubbing, cyanosis, or edema. ASSESSMENT AND PLAN: 1. Musculoskeletal neck pain. She is suffering some high blood pressure from this. I think it is just from the pain. She does not have any signs of preeclampsia at this time and I would not treat her for this. I will go ahead and give her some medicine to take care of her pain and watch her blood pressure. If her blood pressure remains elevated, I would give her a little antihypertensives to go home. I would also give her some muscle relaxants and some mild narcotics to take care of the pain. 2. History of preeclampsia. She just got discharged 2 days ago. I do not think this is an issue at this time. Again, I would treat her blood pressure if it does not come down with the pain medicine. R. Connor Blanco MD RJV/sv , 03:05 AM , 03:14 AM
[2018-05-06] MEDS ORDERED: Bisacodyl 10 MG Supp RECTAL PRN ×2 (05:00)
[2018-05-06] MEDS ORDERED: Acetaminophen 325 MG Tablet PO PRN (05:00)
[2018-05-06] MEDS ORDERED: diazePAM 5 MG Tablet PO PRN (06:00)
[2018-05-06] MEDS ORDERED: Senna/Docusate Sodium 8.6/50 MG Tablet PO SCH (09:00)
--- NOTE | 2018-05-06 09:11 | P.HPIM ---
History of Present Illness Primary Care Physician: UNKNOWN Chief Complaint: headache History of Present Illness: patient is a 38 y/o female with no significant past medical history- other than recent preeclampsia, presented back to ER with headache. she was just recently discharged from the hospital after she was teated for preeclampsia. she says that she had some headache when she left the hospital but the headache got worse since then. headache is constant and somewhat throbbing. it's localized to back of the neck. she reports some photophobia but with no nausea or emesis. there's no report of fever or chills. Review of Systems All other systems reviewed negative except as stated in HPI PMFSH - History History Provided By: Patient - Medical History Medical History: Medical History (Last Reviewed 05/03/18 @ 13:31 by Nyla Hawkins MD) Patient denies medical problems - Surgical History Surgical History: Surgical History (Last Reviewed 05/03/18 @ 13:31 by Nyla Hawkins MD) Hx of tonsillectomy - Family History Family History: Family History (Last Updated 05/03/18 @ 13:25 by Nyla Hawkins MD) Grandparent Stroke - Tobacco History Second Hand Smoke Exposure: No Tobacco Use In Past 30 Days: No Smoking Status: Former smoker Tobacco Type: Cigarettes Cigarettes Per Day: 7 Years Smoked: 2 - Alcohol History How Often Do You Have a Drink Containing Alcohol: Never - Substance Use History Substance History: No History of Abuse - Travel History Recent Travel in the [place] Within the Last 8 Weeks: No Recent Travel Out of the Country Within the Last 8 Weeks: No - Immunization History Tetanus Immunization: >5 Years Medications and Allergies Active Medications: Active Medications Acetaminophen (Tylenol) 650 mg PO Q4H PRN PRN Reason: Temp > 100.4 Al Hydroxide/Mg Hydroxide (Milk Of Magnesia Liq) 30 ml PO Q12H PRN PRN Reason: Mild Constipation Bisacodyl (Dulcolax Supp) 10 mg RECTAL DAILY PRN PRN Reason: SEVERE CONSITIPATION Diazepam (Valium) 10 mg PO Q8H PRN PRN Reason: MUSCLE SPASM Lactulose (Lactulose Liq) 30 ml PO DAILY PRN PRN Reason: SEVERE CONSITIPATION Morphine Sulfate (Morphine Inj) 2 mg IV.PUSH Q4H PRN PRN Reason: PAIN 6-10 Ondansetron HCl (Zofran Inj) 4 mg IV.PUSH Q6H PRN PRN Reason: NAUSEA OR VOMITING Prochlorperazine Edisylate (Compazine Inj) 10 mg IV.PUSH Q6H PRN PRN Reason: MIGRAINE HEADACHE Last Admin: 05/06/18 06:34 Dose: 10 mg Senna/Docusate Sodium (Jaimee-Colace) 1 tab PO BID OLAF Sennosides (Senokot) 17.2 mg PO Q12H PRN PRN Reason: Moderate Constipation Sodium Chloride (Ns Flush) 2 ml IV.FLUSH PRN PRN PRN Reason: FLUSH AFTER USING IV ACCESS Sodium Chloride (Ns Flush) 2 ml IV.FLUSH PRN PRN PRN Reason: FLUSH AFTER USING IV ACCESS Allergies Allergy/AdvReac Type Severity Reaction Status Date / Time No Known Allergies Allergy Verified 04/25/18 17:15 Exam Vital signs: Vital Signs 05/05/18 20:33 05/05/18 22:57 05/06/18 02:38 Temperature 98.7 F Pulse Rate 60 46 L 45 L Respiratory Rate 16 18 18 Blood Pressure 148/98 H 182/84 H 209/93 H Pulse Oximetry 99 97 05/06/18 04:56 05/06/18 08:00 Temperature 98.3 F Pulse Rate 44 L 55 L Respiratory Rate 18 16 Blood Pressure 161/71 H 140/71 Pulse Oximetry 97 97 Intake & Output 05/05/18 05/06/18 05/06/18 18:59 06:59 18:59 Intake Total 0 / 0 Balance 0 / 0 Weight 180 kg Intake: IV 0 / 0 - Constitutional no acute distress - Routine Neck Exam Comments: mild pain on moving her neck. - Routine Respiratory Exam Present: CTA bilaterally - Routine Cardiovascular Exam Present: RRR - Routine Abdominal Exam Present: soft - Routine Extremities Exam Comments: no pedal edema. - Routine Neurological Exam Present: alert, oriented X3 Results - Labs CBC & Chem 7: 05/05/18 22:25 05/05/18 22:25 Labs: Short CBC 05/05/18 Range/Units 22:25 WBC 5.6 (4.0-11.0) th/mm3 Hgb 13.5 (11.6-15.3) gm/dL Hct 38.4 (35.0-46.0) % Plt Count 293 (150-450) th/mm3 BMP 05/05/18 22:25 Sodium 144 Potassium 4.4 Chloride 109 H Carbon Dioxide 24.8 BUN 17 Creatinine 0.72 Calcium 8.6 Liver Function 05/05/18 Range/Units 22:25 Total Bilirubin 0.5 (0.2-1.0) mg/dL AST 16 (15-37) U/L ALT 42 (10-53) U/L Alkaline Phosphatase 146 H (45-117) U/L Albumin 3.2 L (3.4-5.0) g/dL Urine 05/06/18 Range/Units 02:00 Urine Color Yellow (Yellw/Straw) Urine Clarity Hazy H (Clear) Urine pH 6.0 (5.0-8.5) Ur Specific [place] 1.019 (1.002-1.035) Urine Protein Negative (Neg-Trace) mg/dL Urine Glucose (UA) Negative (Negative) mg/dL - Imaging Impressions Chest X-Ray 05/05/18 23:41 CONCLUSION: Negative examination. Head CT 05/06/18 00:17 CONCLUSION: 1. Negative CT Head non contrast. . Caprini VTE Risk Assessment Caprini VTE Risk Assessment: No/Low Risk (score <= 1) Caprini Risk Assessment Model: Point Value = 1 Point Value = 2 Point Value = 3 Point Value = 5 Age 41-60 Minor surgery BMI > 25 kg/m2 Swollen legs Varicose veins or History of unexplained or recurrent spontaneous Oral contraceptives or hormone replacement Sepsis (< 1 month) Serious lung disease, including pneumonia (< 1 month) Abnormal pulmonary function Acute myocardial infarction Congestive heart failure (< 1 month) History of inflammatory bowel disease Medical patient at bed rest Age 61-74 Arthroscopic surgery Major open surgery (> 45 min) Laparoscopic surgery (> 45 min) Malignancy Confined to bed (> 72 hours) Immobilizing plaster cast Central venous access Age >= 75 History of VTE Family history of VTE Factor V Leiden Prothrombin [id number] Lupus anticoagulant Anticardiolipin antibodies Elevated serum homocysteine Heparin-induced thrombocytopenia Other congenital or acquired thrombophilia Stroke (< 1 month) Elective arthroplasty Hip, pelvis, or leg fracture Acute spinal cord injury (< 1 month) Prophylaxis Regimen: Total Risk Factor Score Risk Level Prophylaxis Regimen 0-1 Low Early ambulation 2 Moderate Order ONE of the following: *Sequential Compression Device (SCD) *Heparin 5000 units SQ BID 3-4 Higher Order ONE of the following medications: *Heparin 5000 units SQ TID *Enoxaparin/Lovenox 40 mg SQ daily (WT < 150 kg, CrCl > 30 mL/min) *Enoxaparin/Lovenox 30 mg SQ daily (WT < 150 kg, CrCl > 10-29 mL/min) *Enoxaparin/Lovenox 30 mg SQ BID (WT < 150 kg, CrCl > 30 mL/min) AND/OR *Sequential Compression Device (SCD) 5 or more Highest Order ONE of the following medications: *Heparin 5000 units SQ TID (Preferred with Epidurals) *Enoxaparin/Lovenox 40 mg SQ daily (WT < 150 kg, CrCl > 30 mL/min) *Enoxaparin/Lovenox 30 mg SQ daily (WT < 150 kg, CrCl > 10-29 mL/min) *Enoxaparin/Lovenox 30 mg SQ BID (WT < 150 kg, CrCl > 30 mL/min) AND *Sequential Compression Device (SCD) Assessment and Plan - Plan A/P - headache/ neck pain/ recently treated for preeclampsia CT head with no acute abnormality- LP attempts were unsuccessful in ER- neurology consult appreciated;believed that the headache is likely musculoskeletal and recommended pain control. -elevated BP's - likely due to pain- now has improved. Discussed Condition With: the patient. Discharge Planning: home -tomorrow if pain is better and stable.
--- NOTE | 2018-05-06 09:39 | P.CONNEU ---
History of Present Illness Service: Neurology Consult date: 05/06/18 Reason for Consult: Headache Primary Care Provider: UNKNOWN Chief Complaint: headache History of Present Illness: 38 y/o female who is 10 days post-. She had recently been admitted to the hospital with preeclampsia, was treated and discharged once blood pressure was controlled. She notes that since she was discharged she developed severe headaches. Notes that the pain tends to start on the right posterior aspect of her neck and then move to her head. She also notes some throbbing in the head. She denies previous hx of headache or migraine. This is her 5th child and states she has never had headaches after the births of the other children. She notes her BP was elevated upon admission and after lowering her BP that her headache seems to worsen. She does have light sensitivity and occasional nausea. Denies change in vision. No weakness or sensory changes. She had a vaginal with epidural. She denies having any problems with the . No hx of stroke or seizure. No hx of clotting disorders for her, states her grandmother had a clot in her brain. She has not had any relief from the headache Review of Systems All other systems reviewed negative except as stated in HPI PMFSH - History History Provided By: Patient - Medical History Medical History: Medical History (Last Reviewed 05/03/18 @ 13:31 by Nyla Hawkins MD) Patient denies medical problems - Surgical History Surgical History: Surgical History (Last Reviewed 05/03/18 @ 13:31 by Nyla Hawkins MD) Hx of tonsillectomy - Family History Family History: Family History (Last Updated 05/03/18 @ 13:25 by Nyla Hawkins MD) Grandparent Stroke - Social History I have reviewed the patient's Social History: Yes - Tobacco History Second Hand Smoke Exposure: No Tobacco Use In Past 30 Days: No Smoking Status: Former smoker Tobacco Type: Cigarettes Cigarettes Per Day: 7 Years Smoked: 2 - Alcohol History How Often Do You Have a Drink Containing Alcohol: Never - Substance Use History Substance History: No History of Abuse - Travel History Recent Travel in the [place] Within the Last 8 Weeks: No Recent Travel Out of the Country Within the Last 8 Weeks: No - Immunization History Tetanus Immunization: >5 Years Medications and Allergies Allergies Allergy/AdvReac Type Severity Reaction Status Date / Time No Known Allergies Allergy Verified 04/25/18 17:15 Active Medications: Active Medications Acetaminophen (Tylenol) 650 mg PO Q4H PRN PRN Reason: Temp > 100.4 Al Hydroxide/Mg Hydroxide (Milk Of Magnesia Liq) 30 ml PO Q12H PRN PRN Reason: Mild Constipation Bisacodyl (Dulcolax Supp) 10 mg RECTAL DAILY PRN PRN Reason: SEVERE CONSITIPATION Diazepam (Valium) 10 mg PO Q8H PRN PRN Reason: MUSCLE SPASM Lactulose (Lactulose Liq) 30 ml PO DAILY PRN PRN Reason: SEVERE CONSITIPATION Morphine Sulfate (Morphine Inj) 2 mg IV.PUSH Q4H PRN PRN Reason: PAIN 6-10 Ondansetron HCl (Zofran Inj) 4 mg IV.PUSH Q6H PRN PRN Reason: NAUSEA OR VOMITING Prochlorperazine Edisylate (Compazine Inj) 10 mg IV.PUSH Q6H PRN PRN Reason: MIGRAINE HEADACHE Last Admin: 05/06/18 06:34 Dose: 10 mg Senna/Docusate Sodium (Jaimee-Colace) 1 tab PO BID OLAF Sennosides (Senokot) 17.2 mg PO Q12H PRN PRN Reason: Moderate Constipation Sodium Chloride (Ns Flush) 2 ml IV.FLUSH PRN PRN PRN Reason: FLUSH AFTER USING IV ACCESS Sodium Chloride (Ns Flush) 2 ml IV.FLUSH PRN PRN PRN Reason: FLUSH AFTER USING IV ACCESS Exam Vital signs: Vital Signs 05/05/18 20:33 05/05/18 22:57 05/06/18 02:38 Temperature 98.7 F Pulse Rate 60 46 L 45 L Respiratory Rate 16 18 18 Blood Pressure 148/98 H 182/84 H 209/93 H Pulse Oximetry 99 97 05/06/18 04:56 05/06/18 08:00 Temperature 98.3 F Pulse Rate 44 L 55 L Respiratory Rate 18 16 Blood Pressure 161/71 H 140/71 Pulse Oximetry 97 97 Intake & Output 05/05/18 05/06/18 05/06/18 18:59 06:59 18:59 Intake Total 0 / 0 Balance 0 / 0 Weight 180 kg Intake: IV 0 / 0 - Routine Neurological Exam heart sinus rhythm, no bruit, lungs CTA kehinde alert and orient x 3 CN II-XII intact, no facial droop, PERRL, VFF, she is sensitive to light on testing 5/5 upper and lowers, no spasticity, no leg leg or drift, no focal deficit sensation intact reflexes are brisk with cross adductor in the lower, 1-2+ in upper, no clonus toes are upgoing gait withheld speech is normal, no dysarthria or aphasia cerebellar intact, no ataxia coordination intact she does have tenderness to palpation on the right aspect of the neck and decreased ROM in the neck tightness noted on the right trap Results - Labs CBC & Chem 7: 05/05/18 22:25 05/05/18 22:25 Labs: Laboratory Results - last 24 hr 05/05/18 05/05/18 05/05/18 22:25 22:25 22:25 WBC 5.6 RBC 4.13 Hgb 13.5 Hct 38.4 MCV 93.1 MCH 32.7 MCHC 35.2 RDW 13.1 Plt Count 293 MPV 8.7 Neut % (Auto) 63.4 Lymph % (Auto) 27.7 [place] % (Auto) 7.2 Eos % (Auto) 1.3 Baso % (Auto) 0.4 Neut # (Auto) 3.6 Lymph # (Auto) 1.6 [place] # (Auto) 0.4 Eos # (Auto) 0.1 Baso # (Auto) 0.0 WBC Differential . Differential Comment Auto diff final PT 10.0 INR 1.0 APTT 27.0 Sodium 144 Potassium 4.4 Chloride 109 H Carbon Dioxide 24.8 Anion Gap 10 BUN 17 Creatinine 0.72 Estimated GFR Greater than 89 Random Glucose 83 Calcium 8.6 Magnesium 1.9 Total Bilirubin 0.5 AST 16 ALT 42 Alkaline Phosphatase 146 H Lactate Dehydrogenase B-Natriuretic Peptide Total Protein 7.1 Albumin 3.2 L Urine Color Urine Clarity Urine pH Ur Specific [place] Urine Protein Urine Glucose (UA) Urine Ketones Urine Occult Blood Urine Nitrate Urine Bilirubin Urine Urobilinogen Ur Leukocyte Esterase Urine RBC Urine WBC Ur Squamous Epith Cells Urine Mucus Micro UA Comment Ur Microscopic Review Urine Culture Comments 05/05/18 05/05/18 05/06/18 22:25 22:25 02:00 WBC RBC Hgb Hct MCV MCH MCHC RDW Plt Count MPV Neut % (Auto) Lymph % (Auto) [place] % (Auto) Eos % (Auto) Baso % (Auto) Neut # (Auto) Lymph # (Auto) [place] # (Auto) Eos # (Auto) Baso # (Auto) WBC Differential Differential Comment PT INR APTT Sodium Potassium Chloride Carbon Dioxide Anion Gap BUN Creatinine Estimated GFR Random Glucose Calcium Magnesium Total Bilirubin AST ALT Alkaline Phosphatase Lactate Dehydrogenase 251 H B-Natriuretic Peptide 114 H Total Protein Albumin Urine Color Yellow Urine Clarity Hazy H Urine pH 6.0 Ur Specific [place] 1.019 Urine Protein Negative Urine Glucose (UA) Negative Urine Ketones Negative Urine Occult Blood Large H Urine Nitrate Negative Urine Bilirubin Negative Urine Urobilinogen Less than 2 Ur Leukocyte Esterase Moderate H Urine RBC 2 Urine WBC 4 Ur Squamous Epith Cells 5 Urine Mucus Few H Micro UA Comment Culture not ind Ur Microscopic Review Not Reportable Urine Culture Comments Culture not ind - Imaging Impressions Chest X-Ray 05/05/18 23:41 CONCLUSION: Negative examination. Head CT 05/06/18 00:17 CONCLUSION: 1. Negative CT Head non contrast. . Review/Management - Diagnosis (1) Headache Code(s): R51 - Headache Status: Acute Current Visit: Yes (2) Hypertension Code(s): I10 - Essential (primary) hypertension Status: Acute Current Visit : No - Review/Management Plan: 38 y/o female who is [address] head negative will get MRA/MRV to rule out thrombosis check MRI brain for any acute intracranial abnormality MRI cspine due to neck pain and hyperreflexia work to keep BP in normal range, elevated again this morning check magnesium level has Fioricet prn headache and Valium prn muscle spasm if work up is unremarkable may need to add preventative medication she is not planning to breastfeed Addendum note pt seen and d/w with PA agree with impression and plan continue with above recommendations would start hydration fluids if she is unable to eat. scds (1) Headache Qualifiers: Headache chronicity pattern: acute headache Intractability: intractable (2) Hypertension Qualifiers: Hypertension type: unspecified Qualified Code(s): I10 - Essential (primary) hypertension
[2018-05-06] MEDS: Senna/Docusate Sodium 8.6/50 MG Tablet PO SCH ×2 (09:56→20:26)
[2018-05-06] MEDS: Morphine Sulfate Inj 2 MG/ML Vial IV.PUSH PRN ×3 (10:36→22:40)
--- NOTE | 2018-05-06 14:14 | MR ---
EXAM DATE: 05/06/2018 12:32 PM EDT AGE/SEX: 38 years / Female INDICATIONS: Cephalgia. Severe head pain, recent childbirth. CLINICAL DATA: This is the patient's initial encounter. Patient reports that signs and symptoms have been present for 1 week and indicates a pain score of 7/10. MEDICAL/SURGICAL HISTORY: None. Tonsillectomy. [place] [facility] [place]/06[place]. . TECHNIQUE: 3D [id number] MRA was performed. Source images, multiplanar STS MIP, and 3D volum e MIP reconstructions were reviewed. FINDINGS: There is excellent visualization of the major intracranial arteries out to the second-order branch ve ssels. There is no evidence for aneurysm, vessel truncation or stenosis, and no evidence for vascula r malformation. CONCLUSION: 1. There is no venous thrombosis. 2. There is no major branch vessel occlusion. 3. There is no evidence for an aneurysm. Electronically signed by: Vladislav Boland MD 05/06/2018 2:13 PM EDT
--- NOTE | 2018-05-06 14:16 | MR ---
EXAM DATE: 05/06/2018 12:32 PM EDT AGE/SEX: 38 years / Female INDICATIONS: . Severe head pain, recent childbirth. CLINICAL DATA: This is the patient's initial encounter. Patient reports that signs and symptoms have been present for 1 week and indicates a pain score of 7/10. MEDICAL/SURGICAL HISTORY: None. Tonsillectomy. COMPARISON: No prior exams available for comparison. TECHNIQUE: Multiplanar, multisequence MRI examination of the cervical spine was performed without co ntrast. FINDINGS: Vertebrae: Normal vertebral body height. Homogeneous marrow signal. Alignment: Normal. Cord: Normal configuration and signal. Post Fossa: The cerebellar tonsils are normal in position. C2-C3: The thecal sac has a normal configuration. There is no evidence of disc herniation or spinal canal stenosis. The neural foramina are patent bilaterally. C3-C4: Very minimal bulging evident neural foramen are adequate. C4-C5: The thecal sac has a normal configuration. There is no evidence of disc herniation or spinal canal stenosis. The neural foramina are patent bilaterally. C5-C6: Minimal central to left-sided disc bulging imaging on the anterior thecal space and touching the left C6 root. Spinal stenosis is mild. Disc is desiccated. C6-C7: There is mild disc desiccation. Thecal sac has a normal configuration. There is no evidence of disc herniation or spinal canal stenosis. The neural foramina are patent bilaterally. C7-T1: No epidural impressions seen. CONCLUSION: 1. Mild degenerative disc disease at C5-C6 central to left-sided. Electronically signed by: Vladislav Boland MD 05/06/2018 2:15 PM EDT
--- NOTE | 2018-05-06 14:17 | MR ---
EXAM DATE: 05/06/2018 12:32 PM EDT AGE/SEX: 38 years / Female INDICATIONS: Cephalgia. Severe head pain, recent childbirth. CLINICAL DATA: This is the patient's initial encounter. Patient reports that signs and symptoms have been present for 1 week and indicates a pain score of 7/10. MEDICAL/SURGICAL HISTORY: None. Tonsillectomy. COMPARISON: [facility] – [place], [place] HEAD W/O CONTRAST, 05/06/2018. . TECHNIQUE: MR cerebral venography is performed without and with 10 ml Gadavist (gadobutrol) contrast (single exam dose). Source images, 3D volume MIP, and sliding thin slab MIP reconstructions were re viewed. FINDINGS: There is excellent visualization of the major intracranial arteries out to the second-order branch ve ssels. There is no evidence for aneurysm, vessel truncation or stenosis, and no evidence for vascula r malformation. CONCLUSION: 1. Superficial and deep cerebral veins are patent. There is no evidence for a venous thrombosis. Electronically signed by: Vladislav Boland MD 05/06/2018 2:16 PM EDT
[2018-05-06] MEDS ORDERED: Gadobutrol PF 10 MMOL/10 ML Vial (for RAD) IV.SIG ONE (14:28)
--- NOTE | 2018-05-06 14:46 | MR ---
EXAM DATE: 05/06/2018 12:33 PM EDT AGE/SEX: 38 years / Female INDICATIONS: Cephalgia. Severe head pain, recent childbirth. CLINICAL DATA: This is the patient's initial encounter. Patient reports that signs and symptoms have been present for 1 day and indicates a pain score of 7/10. MEDICAL/SURGICAL HISTORY: None. Tonsillectomy. COMPARISON: No prior exams available for comparison. TECHNIQUE: Multiplanar, multisequence examination of the brain was performed without contrast. FINDINGS: MRI of the brain is performed in sagittal, axial and coronal planes. The craniocervical junction and midline structures are unremarkable. Diffusion weighted images demonstrate no abnormality. No acute c ortical infarction, acute hemorrhage, mass effect or midline shift is seen.Adjacent to the atria of t he right lateral ventricle there is a focus of FLAIR abnormality without significant effusion could r eflect chronic ischemic change or perhaps atypical presentation of hypertensive encephalopathy. This is the only area of involvement.. Posterior fossa structures are unremarkable. CONCLUSION: 1. White matter abnormality as above which may reflect chronic ischemic change though a focus of aty pical hypertensive encephalopathy could be considered. No cortical infarction is seen. Electronically signed by: Fausto Fofana MD 05/06/2018 2:45 PM EDT
[2018-05-07] MEDS: Morphine Sulfate Inj 2 MG/ML Vial IV.PUSH PRN ×2 (03:26→08:40)
[2018-05-07 05:27] LABS: Baso % (Auto) 0.5 % (0.0-2.0); Eos # (Auto) 0.1 th/mm3 (0.0-0.4); Eos % (Auto) 1.4 % (0.0-4.0); Hematocrit 42.4 % (35.0-46.0); Hemoglobin 14.8 gm/dL (11.6-15.3); Lymph # (Auto) 1.5 th/mm3 (1.0-4.8); Lymph % (Auto) 22.2 % (9.0-44.0); Mean Corpuscular Hemoglobin 32.5 pg (27.0-34.0); Mean Corpuscular Volume 92.9 fL (80.0-100.0); Mean Platelet Volume 8.7 fL (7.0-11.0); Mono # (Auto) 0.4 th/mm3 (0.0-0.9); Mono % (Auto) 5.9 % (0.0-8.0); Neut # (Auto) 4.6 th/mm3 (1.8-7.7); Platelet Count 324 th/mm3 (150-450); Red Blood Count 4.56 mil/mm3 (4.00-5.30); Red Cell Distribution Width 13.2 % (11.6-17.2); White Blood Count 6.6 th/mm3 (4.0-11.0)
[2018-05-07 05:53] LABS: Albumin 3.2 g/dL (3.4-5.0); Anion Gap 10 meq/L (5-15); Aspartate Aminotransferase 16 U/L (15-37); Blood Urea Nitrogen 14 mg/dL (7-18); Calcium 8.5 mg/dL (8.5-10.1); Carbon Dioxide 24.1 meq/L (21.0-32.0); Chloride 106 meq/L (98-107); Glomerular Filtration Rate 83 mL/min (>89); Glucose,Random 88 mg/dL (74-106); Sodium 140 meq/L (136-145)
[2018-05-07 05:57] LABS: Alanine Aminotransferase 36 U/L (10-53); Alkaline Phosphatase 151 U/L (45-117); Total Protein 7.3 g/dL (6.4-8.2)
[2018-05-07] MEDS: Senna/Docusate Sodium 8.6/50 MG Tablet PO SCH (08:40)
--- NOTE | 2018-05-07 08:58 | P.PNIM ---
Subjective Interval history: f/u; headache in no acute distress. looks and feels more comfortable today. headache has improved along with the BP. no nausea/ vomiting. Physical Exam Vital signs: Vital Signs 05/06/18 12:00 05/06/18 16:00 05/06/18 19:39 Temperature 98.4 F 98.9 F 98.7 F Pulse Rate 61 61 79 Respiratory Rate 16 16 17 Blood Pressure 136/63 149/77 H 141/72 H Pulse Oximetry 97 96 96 05/06/18 23:30 05/07/18 03:11 05/07/18 03:25 Temperature 99.0 F 98.1 F Pulse Rate 60 54 L 68 Respiratory Rate 18 17 Blood Pressure 143/84 H 152/76 H Pulse Oximetry 97 96 05/07/18 07:39 Temperature 98.5 F Pulse Rate 63 Respiratory Rate 16 Blood Pressure 134/71 Pulse Oximetry 94 L Intake & Output 05/06/18 05/07/18 05/07/18 18:59 06:59 18:59 Intake Total 1000 / 1000 Balance 1000 / 1000 Intake: IV 1000 / 1000 Other: # Voids 3 - Constitutional no acute distress - Routine Respiratory Exam Present: CTA bilaterally - Routine Cardiovascular Exam Present: RRR - Routine Abdominal Exam Present: soft - Routine Extremities Exam Comments: no pedal edema. - Routine Neurological Exam Present: alert, oriented X3 Results - Labs CBC & Chem 7: 05/07/18 04:32 05/07/18 04:32 Laboratory Results - last 24 hr 05/06/18 05/07/18 05/07/18 10:09 04:32 04:32 WBC 6.6 RBC 4.56 Hgb 14.8 Hct 42.4 MCV 92.9 MCH 32.5 MCHC 35.0 RDW 13.2 Plt Count 324 MPV 8.7 Neut % (Auto) 70.0 Lymph % (Auto) 22.2 [place] % (Auto) 5.9 Eos % (Auto) 1.4 Baso % (Auto) 0.5 Neut # (Auto) 4.6 Lymph # (Auto) 1.5 [place] # (Auto) 0.4 Eos # (Auto) 0.1 Baso # (Auto) 0.0 WBC Differential . Differential Comment Auto diff final Sodium 140 Potassium 4.0 Chloride 106 Carbon Dioxide 24.1 Anion Gap 10 BUN 14 Creatinine 0.77 Estimated GFR 83 L Random Glucose 88 Calcium 8.5 Magnesium 1.8 Total Bilirubin 0.7 AST 16 ALT 36 Alkaline Phosphatase 151 H Total Protein 7.3 Albumin 3.2 L - Imaging Impressions Cervical Spine MRI 05/06/18 00:00 CONCLUSION: 1. Mild degenerative disc disease at C5-C6 central to left-sided. Head MRI 05/06/18 00:00 CONCLUSION: 1. White matter abnormality as above which may reflect chronic ischemic change though a focus of atypical hypertensive encephalopathy could be considered. No cortical infarction is seen. Head MRA 05/06/18 00:00 CONCLUSION: 1. There is no venous thrombosis. 2. There is no major branch vessel occlusion. 3. There is no evidence for an aneurysm. Head/Brain Mag Res Venography 05/06/18 00:00 CONCLUSION: 1. Superficial and deep cerebral veins are patent. There is no evidence for a venous thrombosis. Assessment and Plan - Plan A/P - headache/ neck pain/ recently treated for preeclampsia CT head with no acute abnormality- LP attempts were unsuccessful in ER- MRV brain with no venous thrombosis. MRI brain with White matter abnormality as above which may reflect chronic ischemic change though a focus of atypical hypertensive encephalopathy could be considered. No cortical infarction is seen. awaiting neurology recommendations and f/u. -elevated BP's - likely due to pain- now has improved. Discharge Planning: home when cleared by neurology.
--- NOTE | 2018-05-07 12:21 | P.PN ---
Subjective Interval history: bp better neck pain /nape no fever or chills received valium 10 mg earlier Physical Exam Vital signs: Vital Signs 05/06/18 16:00 05/06/18 19:39 05/06/18 23:30 Temperature 98.9 F 98.7 F 99.0 F Pulse Rate 61 79 60 Respiratory Rate 16 17 18 Blood Pressure 149/77 H 141/72 H 143/84 H Pulse Oximetry 96 96 97 05/07/18 03:11 05/07/18 03:25 05/07/18 07:39 Temperature 98.1 F 98.5 F Pulse Rate 54 L 68 63 Respiratory Rate 17 16 Blood Pressure 152/76 H 134/71 Pulse Oximetry 96 94 L 05/07/18 08:00 05/07/18 11:57 Temperature 98.5 F Pulse Rate 50 L 70 Respiratory Rate 20 Blood Pressure 131/83 Pulse Oximetry 96 Intake & Output 05/06/18 05/07/18 05/07/18 18:59 06:59 18:59 Intake Total 1000 / 1000 Balance 1000 / 1000 Intake: IV 1000 / 1000 Other: # Voids 3 - Constitutional no acute distress - Routine HEENT Exam Head: Present: normocephalic, atraumatic Eye: Present: EOMI, PERRL - Routine Neck Exam Present: supple, full ROM - Routine Neurological Exam Present: oriented X3, CN II-XII intact, normal reflexes, moving all extremities , vision grossly intact, normal speech Results - Labs CBC & Chem 7: 05/07/18 04:32 05/07/18 04:32 Laboratory Results - last 24 hr 05/07/18 05/07/18 04:32 04:32 WBC 6.6 RBC 4.56 Hgb 14.8 Hct 42.4 MCV 92.9 MCH 32.5 MCHC 35.0 RDW 13.2 Plt Count 324 MPV 8.7 Neut % (Auto) 70.0 Lymph % (Auto) 22.2 [place] % (Auto) 5.9 Eos % (Auto) 1.4 Baso % (Auto) 0.5 Neut # (Auto) 4.6 Lymph # (Auto) 1.5 [place] # (Auto) 0.4 Eos # (Auto) 0.1 Baso # (Auto) 0.0 WBC Differential . Differential Comment Auto diff final Sodium 140 Potassium 4.0 Chloride 106 Carbon Dioxide 24.1 Anion Gap 10 BUN 14 Creatinine 0.77 Estimated GFR 83 L Random Glucose 88 Calcium 8.5 Total Bilirubin 0.7 AST 16 ALT 36 Alkaline Phosphatase 151 H Total Protein 7.3 Albumin 3.2 L - Imaging Impressions Cervical Spine MRI 05/06/18 00:00 CONCLUSION: 1. Mild degenerative disc disease at C5-C6 central to left-sided. Head MRI 05/06/18 00:00 CONCLUSION: 1. White matter abnormality as above which may reflect chronic ischemic change though a focus of atypical hypertensive encephalopathy could be considered. No cortical infarction is seen. Head MRA 05/06/18 00:00 CONCLUSION: 1. There is no venous thrombosis. 2. There is no major branch vessel occlusion. 3. There is no evidence for an aneurysm. Head/Brain Mag Res Venography 05/06/18 00:00 CONCLUSION: 1. Superficial and deep cerebral veins are patent. There is no evidence for a venous thrombosis. Assessment and Plan - Assessment (1) Headache Code(s): R51 - Headache Status: Acute (2) Hypertension Code(s): I10 - Essential (primary) hypertension Status: Acute - Plan maintain bp normal can dc on prn flexaril 10 mg tid prn add medrol dose pack f/u with diet aide and neuro outpt. d/c planning today. (1) Headache Qualifiers: Headache chronicity pattern: acute headache Intractability: intractable (2) Hypertension Qualifiers: Hypertension type: unspecified Qualified Code(s): I10 - Essential (primary) hypertension
--- NOTE | 2018-05-07 14:41 | P.PNADD ---
Addendum to Inpatient Note Reason for Addendum: Additional Documentation (neurology f/u appreciated and the patient was cleared for discharge. BP has much improved with pain control. she wants to monitor her BP for now. she will be discharged home with f/u with pcp,neurology and [employer]. E-Cara was consulted before discharge.)
== END 2018-05-07 15:16 | disposition home or self-care (01) ==
LOC: NEDA 20:08 → NEPE 20:08 → NEPGCP 05-06 06:31
PROVIDERS: ADMIT Internal Medicine; ATTEND Internal Medicine
DX: Z82.3 Family history of stroke; M50.322 Other cervical disc degeneration at C5-C6 level; R51 Headache; O16.5 Unspecified maternal hypertension, complicating the puerperium; M62.838 Other muscle spasm; F17.210 Nicotine dependence, cigarettes, uncomplicated